=== PATIENT | male | born 1955 | race Caucasian/White ===

== ENCOUNTER 2019-11-20 11:36 | Outpatient (CLI) | payer BC, SELFPAY ==
--- NOTE | 2019-11-20 11:50 | ECG_ITS ---
Measurements Intervals [place] Rate: 83 P: [place]: 0 QRS: 116 QRSD: 153 T: 22 QT: 396 QTc: 466 Interpretive Statements ATRIAL FIBRILLATION RIGHT BUNDLE BRANCH BLOCK LEFT POSTERIOR FASCICULAR BLOCK BASELINE ARTIFACT- I, II, III, AVR, AVL, AVF, V1-V3 ABNORMAL ECG Electronically Signed On 11-20-2019 14:39:43 SHIPPING CLERK by Gilberto Orosco D.O.
== END 2019-11-20 11:37 | disposition home or self-care (01) ==
LOC: CHSCARD 11:41
PROVIDERS: PCP Family Medicine; Visit Provider Family Medicine
DX: I48.91 Unspecified atrial fibrillation (principal); I10 Essential (primary) hypertension
CPT/HCPCS: 93005

== ENCOUNTER 2019-12-25 12:41 | Outpatient (CLI) | payer BC, SELFPAY ==
--- NOTE | ~2019-12-25 | MR_ITS ---
EXAMINATION: MR lumbar spine wo con EXAM DATE: 12/25/2019 14:05 INDICATION: Low back pain. Bladder dysfunction. TECHNIQUE: Multi-sequential, multiplanar MR images of the lumbar spine were obtained without contrast . Sagittal T1, T2, T2 fat saturation images. Axial T2 weighted images. There is no prior study for comparison. FINDINGS: There is endplate erosive change, edema, disc fluid at the L5-S1 level, appearance is suspi cious for discitis/osteomyelitis, could be more indolent etiology. There is less amount of disc edema , signal abnormality within the L4-5 disc space without endplate erosive change. There is abnormal si gnal intensity posterior to the L5 vertebral body, possible small epidural abscess, or could be infla mmation/edema without discrete fluid collection (contrast-enhanced MRI might help distinguish). This measures 8 mm in thickness by 2.5 cm in craniocaudal dimension. Possible underlying etiologies includ e granulomatous process (TB, brucellosis, fungal), or possibly pyogenic infection. There is 3 mm retrolisthesis L4 on L5, 4 mm anterolisthesis L5 on S1. Hemangioma within the L4 verteb ral body. The conus medullaris terminates at the T12-L1 level and has normal signal intensity and mor phology. There is probable bilateral L5 spondylolysis. Level by level evaluation: T11-12: There is a mild diffuse disc bulge. Facet arthropathy: Mild to moderate. Neural foraminal stenosis: Moderate right. Central canal stenosis: No stenosis. T12-L1: Disc does not extend beyond the endplate margin. Facet arthropathy: Mild to moderate. Neural foraminal stenosis: No stenosis. Central canal stenosis: No stenosis. L1-L2: There is a mild to moderate diffuse disc bulge. Facet arthropathy: Mild to moderate. Neural foraminal stenosis: Mild bilateral. Central canal stenosis: Mild. L2-L3: There is a mild diffuse disc bulge. Facet arthropathy: Mild. Neural foraminal stenosis: No stenosis. Central canal stenosis: Mild. L3-L4: There is a mild to moderate diffuse disc bulge. Facet arthropathy: Mild to moderate. Neural foraminal stenosis: Mild right. Central canal stenosis: Mild. L4-L5: There is a moderate to large diffuse disc bulge. Facet arthropathy: Moderate . Ligamentum flavum enlargement. Neural foraminal stenosis: Moderate right, mild to moderate left. Central canal stenosis: Moderate to severe. L5-S1: There is a moderate to large diffuse disc bulge. Facet arthropathy: Mild to moderate. Neural foraminal stenosis: Moderate to severe bilateral. Edema within neural foramen. Central canal stenosis: Mild to moderate. IMPRESSION: 1. Findings suspicious for discitis/osteomyelitis L5-S1 more than L4-5. 2. Possible small epidural abscess posterior to L5. 3. Moderate to severe L4-5 Central canal stenosis and L5-S1 bilateral neural foraminal stenosis. I discussed suspected discitis/osteomyelitis with Preet Begum MD at 945 a.m on 12/26/2019. Reviewed, dictated and finalized at location A. IMPRESSION: 1. Findings suspicious for discitis/osteomyelitis L5-S1 more than L4-5. 2. Possible small epidural abscess posterior to L5. 3. Moderate to severe L4-5 Central canal stenosis and L5-S1 bilateral neural f oraminal stenosis. I discussed suspected discitis/osteomyelitis with Preet Begum MD at 945 a.m on 12/26/2019.
== END 2019-12-25 12:42 | disposition home or self-care (01) ==
PROVIDERS: PCP Family Medicine; Visit Provider Family Medicine
DX: M54.17 Radiculopathy, lumbosacral region (principal); M48.061 Spinal stenosis, lumbar region without neurogenic claudication
CPT/HCPCS: 72148

== ENCOUNTER 2020-04-23 12:02 | Outpatient (CLI) | payer BC, SELFPAY ==
--- NOTE | 2020-04-23 14:41 | PC.NURSE ---
here for monthly supra pubic hernandez cath change. #16 hernandez cath removed and new #16 hernandez cath inserted under aviation survival technician. immediate return of clear yellow with pink tinges. tolerated well and left facilty in electric wc. supra pubic area had some dry brown drainage area cleansed prior to change. stoma area is pink.
== END 2020-04-23 12:03 | disposition home or self-care (01) ==
LOC: CHSTREATRM 12:06
PROVIDERS: PCP Family Medicine; Visit Provider Family Medicine
DX: N35.819 Other urethral stricture, male, unspecified site (principal)
CPT/HCPCS: 51702

== ENCOUNTER 2020-05-28 13:56 | Outpatient (CLI) | payer BC, SELFPAY ==
--- NOTE | 2020-05-28 15:11 | PC.NURSE ---
1400 Patient here for Out Patient supra pubic catheter change. Had resistance getting bulb deflated. Bonita Clayton NP assisted with irrigated bulb, and was able to deflate it and dc'd catheter. Noted patient had hazy sediment urine in tubing and drainage bag. Attempted to insert #16 catheter under steril techique without successful, meeting resistance. Bonita Clayton NP also attempted without successful, also. Patient slight irritated around opening. Bonita Clayton NP suggest send down to ED for MD to look at it. Patient escorted down to ER to registered. Report given to Comfort and Dr. Matos. Bonita also spoke to Dr. Matos.
== END 2020-05-28 13:57 | disposition home or self-care (01) ==
LOC: CHSTREATRM 14:00
PROVIDERS: PCP Family Medicine; Visit Provider Family Medicine
DX: N35.819 Other urethral stricture, male, unspecified site (principal); G06.1 Intraspinal abscess and granuloma; Z96.0 Presence of urogenital implants; T83.090A Other mechanical complication of cystostomy catheter, initial encounter
CPT/HCPCS: 51705

== ENCOUNTER 2020-05-28 15:06 | Emergency (ER) | payer BC, SELFPAY ==
[2020-05-28 15:50] VITALS: BP 106/57; PULSE 72; RESP 18; TEMP 36.4; O2SAT 100
--- NOTE | 2020-05-28 16:04 | ED_ITS ---
HPI - Male Genitourinary General Chief complaint: Urogenital-Male Stated complaint: . History of Present Illness HPI Narrative: Patient sent for outpatient suprapubic catheter change, while on the floor of catheter was difficult to remove, after accomplishing a removal it was difficult for nurses on outpatient basis to reinsert the suprapubic catheter. The patient was subsequently brought downstairs to the emergency department were he was signed in for a suprapubic catheter placement. Patient afebrile no acute pain no shortness of breath no abdominal pain. Review of Systems Review of Systems: All systems reviewed & are unremarkable except as noted in HPI and below PMFSH Past Medical History Medical History Atrial fibrillation Chronic back pain History of neuropathy Surgical History Surgical History History of suprapubic catheter Exam Const: General: cooperative HENMT: Head: normal to inspection Eyes: General: appearance normal, both eyes and all related structures EOM: EOMs intact bilaterally and EOM abnormal Cardio: Palpation: normal PMI Rate: regular rate Rhythm: regular rhythm GI: Inspection: normal to inspection : Other: Suprapubic catheter replaced Course Course Emergency Course: patient prepped with some Betadine and a suprapubic catheter with a coude was placed 14gauge. Procedures Other Procedure Procedure 1: Other Procedure: suprapubic catheter replaced with a 14gauge coude Critical Care Time Critical Care Time Critical Care Time: No Discharge Plan Discharge Clinical Impression: Obstructed suprapubic catheter Qualifiers: Encounter type: initial encounter Qualified Code(s): T83.090A - Other me chanical complication of cystostomy catheter, initial encounter Patient Disposition: Home, Self-Care Condition: Stable Instructions: Antibiotic Form, How to Care for Your Suprapubic Catheter (DC) Additional Instructions: follow-up with primary care physician as scheduled. Follow-up/Referrals: Preet Begum MD [Primary Care Provider] - Time of Disposition: 16:11
== END 2020-05-28 16:17 | disposition home or self-care (01) ==
PROVIDERS: Emergency Provider Emergency Medicine; PCP Family Medicine
DX: T83.090A Other mechanical complication of cystostomy catheter, initial encounter (principal)
CPT/HCPCS: 51705; 99282; 99283

== ENCOUNTER 2020-06-24 13:01 | Outpatient (CLI) | payer BC, SELFPAY ==
--- NOTE | ~2020-06-24 | US_ITS ---
EXAMINATION: US arterial ankle brachial ind DATE: 06/24/2020 14:40 INDICATION: Disorder of circulatory system with risk factors of diabetes, hypertension, hyperlipidemi a and heart disease. TECHNIQUE: Segmental pressures and plethysmographic and Doppler waveforms of the brachial and lower e xtremity arteries were obtained. COMPARISON: None. FINDINGS: Right and left brachial artery pressures of 104 mm Hg and 107 mm Hg, respectively, are concordant (no rmal difference <= 30 mmHg). The right ankle-brachial index (SIM) was unable to be obtained due to inability to occlude the vessel s at the right ankle (normal >= 0.9-1.0). The right great toe-brachial index (TBI) is 0.85 (normal >= 0.65). Arterial Doppler waveforms demonstrate brisk systolic upstrokes at both the right posterior t ibial and dorsalis pedis arteries. The left SIM is also unable to be obtained due to inability to occlude the vessels at the left ankle. The left TBI is 0.79. Arterial Doppler waveforms are biphasic with brisk systolic upstrokes of both the left posterior tibial and dorsalis pedis arteries. IMPRESSION: 1. No significant arterial occlusive disease to either lower limb with normal bilateral TBI's. Reviewed, dictated and finalized at location A. IMPRESSION: 1. No significant arterial occlusive disease to either lower limb with normal b ilateral TBI's.
--- NOTE | ~2020-06-24 | XR_ITS ---
EXAMINATION: XR foot RT min 3V DATE: 06/24/2020 14:11 INDICATION: Right foot pain with wound at the plantar side of the foot. TECHNIQUE: Dorsoplantar, two oblique and lateral views of the right foot were obtained. COMPARISON: None. FINDINGS: Alignment is normal. No fracture. Cortical erosions or periosteal reaction to suggest osteomyelitis. 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 Tiny calcifications likely enthe sopathic near the calcaneal insertion of the plantar aponeurosis. Extensive vascular calcifications t hroughout the right foot and ankle. Soft tissue swelling with subcutaneous edema throughout the right foot, ankle and visualized lower leg. No right ankle joint effusion. IMPRESSION: 1. No acute osseous abnormality. 2. Degenerative changes including mild posterior articular osteoarthritis in the forefoot and entheso pathic change at the posterior calcaneus. Reviewed, dictated and finalized at location A. IMPRESSION: 1. No acute osseous abnormality. 2. Degenerative changes including mild posterior articular osteoarthritis in th e forefoot and enthesopathic change at the posterior calcaneus.
--- NOTE | 2020-06-24 14:31 | PC.NURSE ---
1300 here for monthly supra pubic cath. # 16 coude and new #16 coude inserted with no difficulty under director of instructional technology. immediate return of yellow urine. bulb inflated with 10ml sterile h2o. insertion site light pink. toklerated well and no c/o left in his own personalized motorized wc. next appointment set.
== END 2020-06-24 13:02 | disposition home or self-care (01) ==
LOC: CHSTREATRM 13:04
PROVIDERS: PCP Family Medicine; Visit Provider Family Medicine
DX: R09.89 Other specified symptoms and signs involving the circulatory and respiratory systems (principal); M79.671 Pain in right foot; N35.819 Other urethral stricture, male, unspecified site; G06.1 Intraspinal abscess and granuloma; Z96.0 Presence of urogenital implants
CPT/HCPCS: 51702; 51705; 73630; 93922

== ENCOUNTER 2020-07-30 13:09 | Outpatient (CLI) | payer BC, SELFPAY ==
--- NOTE | 2020-07-30 14:53 | PC.NURSE ---
1345 here for monthly supra pubic hernandez change. did have some resistance on attempting to get hernandez removed. bulb deflated..meeting resistance on pulling out cath. did come out. new crude cath inserted without difficulty. immediate return of red urine. tolerated well. bulb inflated with 10cc of sterile water. stat locked to r upper leg.
== END 2020-07-30 13:10 | disposition home or self-care (01) ==
LOC: CHSTREATRM 13:14
PROVIDERS: PCP Family Medicine; Visit Provider Family Medicine
DX: N35.819 Other urethral stricture, male, unspecified site (principal); G06.1 Intraspinal abscess and granuloma; Z96.0 Presence of urogenital implants
CPT/HCPCS: 51705

== ENCOUNTER 2020-09-11 10:11 | Outpatient (CLI) | payer BC, SELFPAY ==
--- NOTE | 2020-09-11 10:30 | PC.NURSE ---
Pt to room 227 per wc. A&Ox3. Has no concerns or complaints. 16Fr. Coude suprapubic catheter removed, intact. Suprapubic stoma opening without redness or drainage. Area cleansed with betadine. New 16Fr. Coude suprapubic catheter placed using sterile technique without difficulty. Immediate return of clear yellow urine noted. Pt tolerated well. Discharged to home per self, per wc.
== END 2020-09-11 10:12 | disposition home or self-care (01) ==
PROVIDERS: PCP Family Medicine; Visit Provider Family Medicine
DX: N35.819 Other urethral stricture, male, unspecified site (principal); G06.1 Intraspinal abscess and granuloma; Z96.0 Presence of urogenital implants
CPT/HCPCS: 51702; 51705

== ENCOUNTER 2020-09-25 09:06 | Outpatient (CLI) | payer BC, SELFPAY ==
[2020-09-25 12:05] LABS: Basophils Absolute Auto 0.04 K/mm3 (0.00-0.10); Basophils Percent Auto 0.6 % (0.0-1.0); Eosinophils Absolute Auto 0.29 K/mm3 (0.02-0.50); Eosinophils Percent Auto 4.6 % (1.0-6.0); Hematocrit 30.6 % (37.0-46.0); Hemoglobin 9.7 g/dL (12.4-15.3); Immature Granulocyte Absolute 0.02 K/mm3 (0.00-0.00); Immature Granulocyte Percent A 0.3 % (0.0-0.0); Lymphocytes Absolute Auto 1.31 K/mm3 (1.10-4.50); Mean Corpuscular HGB Conc 31.7 g/dL (32.0-36.0); Mean Corpuscular Hemoglobin 28.4 pg (27.0-31.0); Mean Corpuscular Volume 89.5 fL (78.0-102.0); Mean Platelet Volume 10.6 fl (8.7-11.0); Monocytes Absolute Auto 0.59 K/mm3 (0.10-0.90); Monocytes Percent Auto 9.4 % (2.0-11.0); Neutrophils Percent Auto 64.1 % (50.0-70.0); Platelet Count Result 254 K/mm3 (150-420); Red Blood Count 3.42 M/mm3 (4.70-6.10); Red Cell Distribution Width 13.9 % (11.6-14.4); White Blood Count 6.3 K/mm3 (4.8-10.8)
[2020-09-25 12:59] LABS: Alkaline Phosphatase 122 U/L (46-116); Anion Gap 8 mmol/L (8-16); Aspartate Amino Transferase 19 U/L (15-37); Bilirubin,Total 0.6 mg/dL (0.00-1.00); Blood Urea Nitrogen 33 mg/dL (7-18); Calcium 8.6 mg/dL (8.5-10.1); Carbon Dioxide 25 mmol/L (21-32); Chloride 103 mmol/L (98-108); Estimated Glomerular Filt Rate 22; Glucose 83 mg/dL (70-99); Osmolality Calculated 288 mOsm/kg (285-295); Potassium 3.7 mmol/L (3.5-5.1); Sodium 136 mmol/L (136-145); Total Protein 6.8 g/dL (6.4-8.2)
[2020-09-25 13:22] LABS: Alanine Aminotransferase 15 U/L (16-63); Albumin Level 2.4 g/dL (3.4-5.0)
[2020-09-26 18:58] LABS: SARS-CoV-2 RNA PCR Negative
== END 2020-09-25 09:07 | disposition home or self-care (01) ==
LOC: CHSLAB 09:09
PROVIDERS: PCP Family Medicine; Visit Provider Family Medicine
DX: R19.7 Diarrhea, unspecified (principal); Z20.828 Contact with and (suspected) exposure to other viral communicable diseases
CPT/HCPCS: 36415; 80053; 85025; 87635; C9803; U0003

== ENCOUNTER 2020-10-16 14:26 | Outpatient (CLI) | payer BC, SELFPAY ==
--- NOTE | 2020-10-16 14:50 | PC.NURSE ---
Suprapubic catheter changed by Jaime HOUSTON. Tolerated well by patient. Extra stat lock for catheter sent with patient. Patient wheelchair bound. Wheeled self off of floor.
== END 2020-10-16 14:27 | disposition home or self-care (01) ==
LOC: CHSLAB 14:29
PROVIDERS: PCP Family Medicine; Visit Provider Family Medicine
DX: N35.819 Other urethral stricture, male, unspecified site (principal); Z96.0 Presence of urogenital implants; G06.1 Intraspinal abscess and granuloma
CPT/HCPCS: 51705

== ENCOUNTER 2020-11-26 10:39 | Outpatient (CLI) | payer BC, SELFPAY ==
--- NOTE | 2020-11-26 11:16 | PC.NURSE ---
Patient arrived via motorized wheelchair. Directed to room 201. Coude' Silva catheter removed with balloon and tip intact. Suprapubic stoma cleansed with iodine solution. #16 fr coude Silva catheter inserted with immediate return of pink urine with minimal blood. Patient reports this is usual for him. Catheter secured with stat lock. Patient left per motorized wheelchair.
== END 2020-11-26 10:40 | disposition home or self-care (01) ==
PROVIDERS: PCP Family Medicine; Visit Provider Family Medicine
DX: N35.819 Other urethral stricture, male, unspecified site (principal); G06.1 Intraspinal abscess and granuloma
CPT/HCPCS: 51702; 51705

== ENCOUNTER 2021-01-01 10:47 | Outpatient (CLI) | payer BC, SELFPAY ==
--- NOTE | 2021-01-01 16:33 | PC.NURSE ---
1300 pt here for monthly hernandez cath change. urine in bag has like a green tinged. hernandez bulb deflated only could get approx 3ml return. had lots of trouble trying to hernandez out. did finally come. did have some red bloody. area cleansed and technician anatomic pathology inserted a new hernandez without no trouble and immediate return of marissa urine. bulb inflated with 8ml of ns. tolerated well.
== END 2021-01-01 10:48 | disposition home or self-care (01) ==
PROVIDERS: PCP Family Medicine; Visit Provider Family Medicine
DX: N35.819 Other urethral stricture, male, unspecified site (principal); G06.1 Intraspinal abscess and granuloma
CPT/HCPCS: 51702

== ENCOUNTER 2021-01-29 10:54 | Outpatient (CLI) | payer BC, SELFPAY ==
--- NOTE | 2021-01-29 11:33 | PC.NURSE ---
here for supra-pubic cath change. old hernandez bulb deflated and removed with ease. new #16 coude inserted under piano technician. immediate return of red tinged urine that cleared immediately. bulb infated with 8ml sterile h20. tolerated well. left in his own motorized wc. to return february 26 @ 11am.
== END 2021-01-29 10:55 | disposition home or self-care (01) ==
PROVIDERS: PCP Family Medicine; Visit Provider Family Medicine
DX: N35.819 Other urethral stricture, male, unspecified site (principal); G06.1 Intraspinal abscess and granuloma
CPT/HCPCS: 51705

== ENCOUNTER 2021-02-02 11:08 | Outpatient (NON) | payer BC, SELFPAY ==
[2021-02-02 11:31] LABS: Hematocrit 40.7 % (37.0-46.0); Mean Corpuscular HGB Conc 31.9 g/dL (32.0-36.0); Mean Corpuscular Hemoglobin 27.6 pg (27.0-31.0); Mean Corpuscular Volume 86.4 fL (78.0-102.0); Mean Platelet Volume 12.3 fl (8.7-11.0); Platelet Count Result 110 K/mm3 (150-420); Red Blood Count 4.71 M/mm3 (4.70-6.10); Red Cell Distribution Width 15.9 % (11.6-14.4); White Blood Count 1.9 K/mm3 (4.8-10.8)
[2021-02-02 11:47] LABS: Anion Gap 6 mmol/L (8-16); Blood Urea Nitrogen 30 mg/dL (7-18); Calcium 7.9 mg/dL (8.5-10.1); Carbon Dioxide 27 mmol/L (21-32); Chloride 106 mmol/L (98-108); Estimated Glomerular Filt Rate 39; Glucose 73 mg/dL (70-99); Osmolality Calculated 293 mOsm/kg (285-295); Sodium 139 mmol/L (136-145)
[2021-02-02 12:05] LABS: Band Neutrophils Percent 0 % (0-6); Basophils Percent Manual 0 % (0-1); Eosinophils Absolute Manual 0.13 K/mm3 (0.02-0.5); Eosinophils Percent Manual 7 % (1-6); Lymphocytes Absolute Manual 0.57 K/mm3 (1.1-4.5); Lymphocytes Percent Manual 30 % (18-44); Monocytes Absolute Manual 0.07 K/mm3 (0.1-0.90); Monocytes Percent Manual 4 % (3-9); Neutrophils Absolute Manual 1.12 K/mm3 (1.3-6.7); Neutrophils Percent Manual 59 % (46-73); Platelet Estimate Adequate (Adequate); Total Cells Counted 100
[2021-02-02 12:36] LABS: Erythrocyte Sedimentation Rate 18 mm/hr (0-20)
== END 2021-02-02 11:09 | disposition home or self-care (01) ==
LOC: CHSLAB 11:14
PROVIDERS: Family Medicine
DX: M86.171 Other acute osteomyelitis, right ankle and foot (principal); Z79.2 Long term (current) use of antibiotics
CPT/HCPCS: 36415; 80048; 85025; 85652

== ENCOUNTER 2021-02-12 11:38 | Outpatient (CLI) | payer BC, SELFPAY ==
[2021-02-12 11:58] LABS: Basophils Absolute Auto 0.05 K/mm3 (0.00-0.10); Basophils Percent Auto 0.9 % (0.0-1.0); Eosinophils Absolute Auto 0.51 K/mm3 (0.02-0.50); Eosinophils Percent Auto 9.5 % (1.0-6.0); Hematocrit 25.5 % (37.0-46.0); Hemoglobin 7.9 g/dL (12.4-15.3); Immature Granulocyte Absolute 0.02 K/mm3 (0.00-0.00); Immature Granulocyte Percent A 0.4 % (0.0-0.0); Lymphocytes Absolute Auto 1.12 K/mm3 (1.10-4.50); Lymphocytes Percent Auto 20.8 % (18.0-42.0); Mean Corpuscular Hemoglobin 27.6 pg (27.0-31.0); Mean Corpuscular Volume 89.2 fL (78.0-102.0); Mean Platelet Volume 10.3 fl (8.7-11.0); Monocytes Percent Auto 9.3 % (2.0-11.0); Neutrophils Absolute Auto 3.2 K/mm3 (1.7-7.2); Neutrophils Percent Auto 59.1 % (50.0-70.0); Platelet Count Result 239 K/mm3 (150-420); Red Blood Count 2.86 M/mm3 (4.70-6.10); Red Cell Distribution Width 15.9 % (11.6-14.4); White Blood Count 5.4 K/mm3 (4.8-10.8)
[2021-02-12 12:24] LABS: Alanine Aminotransferase 12 U/L (16-63); Albumin Level 1.7 g/dL (3.4-5.0); Alkaline Phosphatase 164 U/L (46-116); Anion Gap 5 mmol/L (8-16); Aspartate Amino Transferase 18 U/L (15-37); Bilirubin,Total 0.5 mg/dL (0.00-1.00); Blood Urea Nitrogen 33 mg/dL (7-18); Calcium 7.8 mg/dL (8.5-10.1); Carbon Dioxide 28 mmol/L (21-32); Chloride 104 mmol/L (98-108); Estimated Glomerular Filt Rate 35; Glucose 79 mg/dL (70-99); Osmolality Calculated 290 mOsm/kg (285-295); Potassium 4.4 mmol/L (3.5-5.1); Sodium 137 mmol/L (136-145); Total Protein 6.1 g/dL (6.4-8.2)
[2021-02-12 13:01] LABS: Erythrocyte Sedimentation Rate 62 mm/hr (0-20)
[2021-02-12 14:35] LABS: Ferritin 190 ng/mL (26-388); Iron 47 ug/dL (65-175); Percent Iron Saturation 31 % (12-57)
== END 2021-02-12 11:39 | disposition home or self-care (01) ==
LOC: CHSLAB 11:39
PROVIDERS: PCP Family Medicine; Visit Provider Family Medicine
DX: M86.9 Osteomyelitis, unspecified (principal); D69.6 Thrombocytopenia, unspecified; D64.9 Anemia, unspecified
CPT/HCPCS: 36415; 80053; 82728; 83540; 83550; 85025; 85652

== ENCOUNTER 2021-02-16 11:21 | Outpatient (NON) | payer BC, SELFPAY ==
[2021-02-16 11:58] LABS: Anion Gap 7 mmol/L (8-16); Blood Urea Nitrogen 30 mg/dL (7-18); Calcium 7.6 mg/dL (8.5-10.1); Carbon Dioxide 27 mmol/L (21-32); Chloride 105 mmol/L (98-108); Estimated Glomerular Filt Rate 33; Glucose 126 mg/dL (70-99); Osmolality Calculated 296 mOsm/kg (285-295); Potassium 3.7 mmol/L (3.5-5.1); Sodium 139 mmol/L (136-145)
[2021-02-16 12:01] LABS: Basophils Absolute Auto 0.02 K/mm3 (0.00-0.10); Basophils Percent Auto 0.4 % (0.0-1.0); Eosinophils Absolute Auto 0.49 K/mm3 (0.02-0.50); Eosinophils Percent Auto 8.7 % (1.0-6.0); Immature Granulocyte Absolute 0.02 K/mm3 (0.00-0.00); Immature Granulocyte Percent A 0.4 % (0.0-0.0); Lymphocytes Absolute Auto 1.57 K/mm3 (1.10-4.50); Mean Corpuscular HGB Conc 31.9 g/dL (32.0-36.0); Mean Corpuscular Hemoglobin 28.6 pg (27.0-31.0); Mean Corpuscular Volume 89.7 fL (78.0-102.0); Mean Platelet Volume 11.7 fl (8.7-11.0); Monocytes Absolute Auto 0.52 K/mm3 (0.10-0.90); Monocytes Percent Auto 9.3 % (2.0-11.0); Neutrophils Percent Auto 53.2 % (50.0-70.0); Platelet Count Result 238 K/mm3 (150-420); Red Blood Count 1.26 M/mm3 (4.70-6.10); Red Cell Distribution Width 15.9 % (11.6-14.4); White Blood Count 5.6 K/mm3 (4.8-10.8)
[2021-02-16 12:09] LABS: Hematocrit 11.3 % (37.0-46.0); Hemoglobin 3.6 g/dL (12.4-15.3)
[2021-02-16 13:07] LABS: Erythrocyte Sedimentation Rate 80 mm/hr (0-20)
== END 2021-02-16 11:22 | disposition home or self-care (01) ==
PROVIDERS: PCP Family Medicine
DX: M86.171 Other acute osteomyelitis, right ankle and foot (principal); Z79.2 Long term (current) use of antibiotics
CPT/HCPCS: 36415; 80048; 85025; 85652

== ENCOUNTER 2021-03-02 10:27 | Outpatient (NON) | payer BC, SELFPAY ==
[2021-03-02 11:20] LABS: Erythrocyte Sedimentation Rate 54 mm/hr (0-20)
[2021-03-02 11:23] LABS: Hematocrit 26.2 % (37.0-46.0); Hemoglobin 8.2 g/dL (12.4-15.3); Mean Corpuscular HGB Conc 31.3 g/dL (32.0-36.0); Mean Corpuscular Hemoglobin 28.6 pg (27.0-31.0); Mean Corpuscular Volume 91.3 fL (78.0-102.0); Platelet Count Result 180 K/mm3 (150-420); Red Blood Count 2.87 M/mm3 (4.70-6.10); Red Cell Distribution Width 16.2 % (11.6-14.4); White Blood Count 5.4 K/mm3 (4.8-10.8)
[2021-03-02 11:34] LABS: Anion Gap 9 mmol/L (8-16); Blood Urea Nitrogen 38 mg/dL (7-18); Carbon Dioxide 25 mmol/L (21-32); Chloride 106 mmol/L (98-108); Estimated Glomerular Filt Rate 30; Glucose 141 mg/dL (70-99); Osmolality Calculated 301 mOsm/kg (285-295); Potassium 3.9 mmol/L (3.5-5.1); Sodium 140 mmol/L (136-145)
[2021-03-02 11:55] LABS: Band Neutrophils Percent 0 % (0-6); Basophils Absolute Manual 0.16 K/mm3 (0-0.1); Basophils Percent Manual 3 % (0-1); Eosinophils Absolute Manual 0.59 K/mm3 (0.02-0.5); Eosinophils Percent Manual 11 % (1-6); Lymphocytes Absolute Manual 1.51 K/mm3 (1.1-4.5); Lymphocytes Percent Manual 28 % (18-44); Monocytes Percent Manual 2 % (3-9); Neutrophils Absolute Manual 3.02 K/mm3 (1.3-6.7); Neutrophils Percent Manual 56 % (46-73); Total Cells Counted 100
[2021-03-02 11:56] LABS: Platelet Estimate Adequate (Adequate)
== END 2021-03-02 10:28 | disposition home or self-care (01) ==
LOC: CHSLAB 10:38
DX: M86.9 Osteomyelitis, unspecified (principal); Z79.2 Long term (current) use of antibiotics
CPT/HCPCS: 36415; 80048; 85025; 85652

== ENCOUNTER 2021-04-05 11:38 | Outpatient (CLI) | payer BC, SELFPAY ==
--- NOTE | ~2021-04-05 | XR_ITS ---
EXAMINATION: XR chest 2V DATE: 04/05/2021 12:12 INDICATION: Cough and pleural effusion TECHNIQUE: frontal and lateral views of the chest were obtained. COMPARISON: None FINDINGS: There is complete opacification of the right hemithorax. Very small left pleural effusion with blunti ng of the posterior sulcus but not the costophrenic angles. Small calcified nodule in the left midlun g zone consistent with old granulomatous disease. No pneumothorax. The left side of the cardiomediast inal silhouette is normal. The right side is obscured. No evident midline shift of the trachea. There are bridging osteophytes at multiple levels in the spine, consistent with diffuse idiopathic skeleta l hyperostosis (DISH). IMPRESSION: 1. Complete opacification of the right hemithorax consistent with likely large right pleural effusion and associated atelectasis. Underlying malignancy or pneumonia not excludable. 2. Very small left pleural effusion. Reviewed, dictated and finalized at location A. IMPRESSION: 1. Complete opacification of the right hemithorax consistent with likely large right pleural effusion and associated atelectasis. Underlying malignancy or pne umonia not excludable. 2. Very small left pleural effusion.
== END 2021-04-05 11:39 | disposition home or self-care (01) ==
LOC: CHSIMG 11:42
PROVIDERS: PCP Family Medicine; Visit Provider Family Medicine
DX: J90 Pleural effusion, not elsewhere classified (principal)
CPT/HCPCS: 71046

== ENCOUNTER 2021-04-06 11:10 | Inpatient (IN) | payer MEDICARE, BC, SELFPAY ==
[2021-04-06] VITALS (14 sets, daily range): BP systolic 102–150; BP diastolic 59–99; PULSE 100–165; RESP 20–29; TEMP 36.1–37.6; O2SAT 93–98; BMI 36.0
--- NOTE | ~2021-04-06 | CT_ITS ---
EXAMINATION: CT diagnostic chest wo con DATE: 04/06/2021 13:17 INDICATION: opacified right hemithorax TECHNIQUE: Computed tomography (CT) of the chest was performed without intravenous contrast. Addition al 3D reconstructions utilizing coronal maximum intensity projection (MIP) were performed. Automated exposure control and iterative reconstruction technique were employed. The dose-length product was 73 9.13 mGy-cm. COMPARISON: None FINDINGS: Large right pleural effusion which results in depression of the right hemidiaphragm. There is complet e collapse of the right lung. There appears to be loculation of a small portion of the anteromedial a spect of a pleural effusion with extrusion of the right middle and upper lobes to the anterior pleura . Small amount of fluid layering posteriorly in the inferior trachea with fluid filling the right-lopez ed bronchi. Small left pleural effusion. There are few small bilateral calcified pulmonary nodules al derik with calcified left hilum and mediastinum consistent with old granulomatous disease. Heart size i s normal. No pericardial effusion. Atherosclerotic coronary artery calcification. Thoracic aorta is n ormal in caliber. No pathologically enlarged thoracic lymphadenopathy. Small amount of perihepatic as cites in the upper abdomen. Nonspecific splenomegaly measuring at least 14 cm in maximal length. Ther e are bridging osteophytes at multiple levels in the spine, consistent with diffuse idiopathic skelet al hyperostosis (DISH). Body wall edema. IMPRESSION: 1. Large right pleural effusion with with complete collapse of the right lung. There appear to be iftikhar e adhesions with mild loculation of a portion of the pleural effusion as well as with depression of t he right hemidiaphragm suggesting this represents an exudative effusion indeterminate etiology. Consi raheel diagnostic thoracentesis. 2. Nonspecific splenomegaly. 3. Very small left pleural effusion and small amount of ascites in the right upper quadrant. Reviewed, dictated and finalized at location A. IMPRESSION: 1. Large right pleural effusion with with complete collapse of the right lung. There appear to be some adhesions with mild loculation of a portion of the pleu ral effusion as well as with depression of the right hemidiaphragm suggesting t his represents an exudative effusion indeterminate etiology. Consider diagnosti c thoracentesis. 2. Nonspecific splenomegaly. 3. Very small left pleural effusion and small amount of ascites in the right up per quadrant.
--- NOTE | ~2021-04-06 | CT_ITS ---
EXAMINATION: CT abdomen pelvis wo con DATE: 04/06/2021 14:33 INDICATION: Renal failure TECHNIQUE: Computed tomography (CT) of the abdomen and pelvis was performed without intravenous contr ast. The dose-length product (DLP) was 1613.29 mGy-cm. Automated exposure control and iterative recon struction technique were employed. COMPARISON: None FINDINGS: There is complete opacification of the visualized right hemithorax with collapse of the rig ht lung. The heart size is normal. The liver, spleen, pancreas, and adrenal glands are normal. Stones are present in the nondistended gallbladder. There is mild atrophy of the kidneys. A 1.4 cm cyst is noted in the left kidney. There is calcified atherosclerosis of the aorta and many of the other arter ies. No pathologically enlarged abdominal or pelvic lymph nodes are identified. There is no free intr aperitoneal gas or evidence of bowel obstruction. There is a small volume of right upper quadrant asc ites tracking into the pelvis. There are bilateral inguinal hernias containing fat. A small amount of ascites is also noted in the right inguinal hernia. A suprapubic catheter decompresses the urinary b ladder. Changes of posterior lumbosacral fusion are noted there are severe spondylosis at L5-S1. IMPRESSION: 1. Complete opacification of the visualized hemithorax with collapse of the right lobe. 2. Cholelithiasis without evidence of cholecystitis. 3. Small volume of right upper quadrant ascites tracking into the pelvis. Reviewed, dictated and finalized at location B. IMPRESSION: 1. Complete opacification of the visualized hemithorax with collapse of the rig ht lobe. 2. Cholelithiasis without evidence of cholecystitis. 3. Small volume of right upper quadrant ascites tracking into the pelvis.
--- NOTE | ~2021-04-06 | XR_ITS ---
EXAMINATION: XR chest port-a-cath/central INDICATION: Dialysis catheter insertion TECHNIQUE: Portable AP chest at 1132 hours COMPARISON: 04/05/2021 FINDINGS: A right internal jugular dialysis catheter is been inserted which ends with its tip in the distal superior vena cava. There is no pneumothorax. There is complete opacification of the right hem ithorax. Patchy airspace opacities are present in the left lung. The heart size is normal. IMPRESSION: 1. Right internal jugular dialysis catheter insertion. No pneumothorax. 2. Complete opacification of right hemithorax, consistent with pleural effusion and right lung collap se. Reviewed, dictated and finalized at location B. IMPRESSION: 1. Right internal jugular dialysis catheter insertion. No pneumothorax. 2. Complete opacification of right hemithorax, consistent with pleural effusion and right lung collapse.
--- NOTE | ~2021-04-06 | XR_ITS ---
EXAMINATION: [id number] DATE: 04/07/2021 11:12 INDICATION: Right pleural effusion status post thoracentesis. TECHNIQUE: A single frontal view of the chest was obtained. COMPARISON: Chest 2 views 04/05/2021 FINDINGS: There is complete opacification of right hemithorax, consistent with large pleural effusion . A calcified left lung nodule is consistent with old granulomatous disease. No pneumothorax. The hea rt size is normal. IMPRESSION: 1. Large right pleural effusion with complete opacification of right hemithorax. Reviewed, dictated and finalized at location A. IMPRESSION: 1. Large right pleural effusion with complete opacification of right hemithorax .
--- NOTE | ~2021-04-06 | CT_ITS ---
EXAMINATION: CT brain wo con INDICATION: Altered mental status COMPARISON: None TECHNIQUE: Standard unenhanced head CT. The dose-length product (DLP) was 681.00 mGy-cm. The mA was a djusted according to patient size. Iterative reconstruction technique was employed. FINDINGS: Motion artifact slightly limits the examination. There is no intracranial hemorrhage, acute infarction, or abnormal mass lesion. The ventricles are normal. There is no abnormal mass effect or midline shift. The nix-white matter differentiation is normal. The basal cisterns are patent. Intrac ranial calcified cerebral atherosclerosis is noted. The orbits are normal. The paranasal sinuses, mas toids and calvarium are normal. IMPRESSION: 1. No acute intracranial abnormality. Reviewed, dictated and finalized at location B.
--- NOTE | ~2021-04-06 | US_ITS ---
EXAMINATION: US renal BI DATE: 04/06/2021 14:37 INDICATION: Renal failure. TECHNIQUE: Multiple ultrasound grayscale images of the kidneys were obtained. COMPARISON: CT abdomen and pelvis 04/06/2021 FINDINGS: The right kidney measures 10.9 x 5.7 x 5.2 cm. The left kidney measures 11.6 x 6.4 x 6.1 cm. The kidn eys demonstrate normal parenchymal echogenicity. There is no hydronephrosis. The bladder is decompres sed by a suprapubic catheter. Splenomegaly is noted. There is a right pleural effusion. IMPRESSION: 1. Normal kidneys. No hydronephrosis. 2. Right pleural effusion. 3. Splenomegaly. Reviewed, dictated and finalized at location A.
--- NOTE | ~2021-04-06 | XR_ITS ---
EXAMINATION: XR foot RT 2V EXAM DATE: 04/06/2021 18:52 INDICATION: Wound right foot, recent osteomyelitis . Surgery 3-4 months ago. TECHNIQUE: Frontal and lateral projections of the right foot. Comparison is made to prior examinatio n from 06/24/2020. FINDINGS: Patient is status post right 5th transmetatarsal amputation. There is swelling in the rese ction bed and diffusely over the forefoot. There are no bony erosions identified. Scattered overall m oderate polyarticular primary osteoarthritis. Vascular calcifications. There are no acute fractures i dentified. IMPRESSION: 1. No acute osseous findings. 2. Forefoot soft tissue swelling. Reviewed, dictated and finalized at location A.
--- NOTE | ~2021-04-06 | XR_ITS ---
EXAMINATION: XR abdomen NG/feed tube insert INDICATION: Nasogastric tube placement TECHNIQUE: Portable AP KUB-NG at 1335 hours COMPARISON: None available FINDINGS: The nasogastric tube is in the stomach. There is complete opacification of the right hemith orax. There is moderate gaseous distention of the stomach. IMPRESSION: 1. Nasogastric tube is in the moderately distended stomach. Reviewed, dictated and finalized at location A.
--- NOTE | ~2021-04-06 | US_ITS ---
EXAMINATION: US thoracentesis DATE: 04/07/2021 11:18 INDICATION: pleural effusion TECHNIQUE: The procedure and its risks, benefits, and alternatives were discussed with the patient. P otential risks discussed included bleeding, infection, and pneumothorax. The patient understood the r isks and agreed to proceed. The skin was prepped and draped in sterile fashion. 1% lidocaine was used for local anesthesia. Under ultrasound guidance, a 5 Fr catheter with trochar was advanced into the right pleural effusion. Fluid was aspirated. The catheter was removed, and a dressing was applied. Th ere were no immediate complications. FINDINGS: Ultrasound images demonstrate a right pleural effusion and the catheter within the fluid. IMPRESSION: 1. Successful ultrasound-guided thoracentesis yielding 1000 mL of cloudy, yellow fluid. Reviewed, dictated and finalized at location A. IMPRESSION: 1. Successful ultrasound-guided thoracentesis yielding 1000 mL of cloudy, yell ow fluid.
--- NOTE | 2021-04-06 11:31 | ECG_ITS ---
Measurements Intervals [place] Rate: 168 P: [place]: 0 QRS: 89 QRSD: 138 T: 26 QT: 267 QTc: 446 Interpretive Statements ATRIAL FIBRILLATION WITH RAPID VENTRICULAR RESPONSE RIGHT BUNDLE BRANCH BLOCK BASELINE ARTIFACT- II, III, AVR, AVF, V4-V6 ABNORMAL ECG Electronically Signed On 04-06-2021 11:43:27 CDT by Gilberto Orosco D.O.
[2021-04-06] MEDS: dilTIAZem HCl INJ 25 MG/5 ML VIAL 10 MG IV PUSH (11:53)
[2021-04-06 12:06] LABS: Basophils Absolute Auto 0.1 K/mm3 (0.0-0.1); Basophils Percent Auto 0.2 % (0.2-1.2); Eosinophils Absolute Auto 0.1 K/mm3 (0-0.3); Eosinophils Percent Auto 0.2 % (0-4.4); Hematocrit 27.2 % (42.0-52.0); Lymphocytes Absolute Auto 0.85 K/mm3 (0.9-3.2); Lymphocytes Percent Auto 2.9 % (18.3-44.2); Mean Corpuscular HGB Conc 33.1 g/dl (32-36); Mean Corpuscular Volume 84.5 fl (80-100); Mean Platelet Volume 11.2 fl (7.4-10.4); Monocytes Percent Auto 3.6 % (2.6-8.5); Neutrophils Absolute Auto 26.5 K/mm3 (1.3-6.7); Neutrophils Percent Auto 92.1 % (45.5-73.1); Platelet Count Result 368 k/mm3 (150-375); Red Blood Count 3.22 M/mm3 (4.6-6.20); Red Cell Distribution Width 15.9 % (11.5-14.5); White Blood Count 28.8 K/mm3 (4.5-10.0)
[2021-04-06 12:14] LABS: INR 1.7; Lactic Acid Reflex 0.9 mmol/L (0.7-2.1); Prothrombin Time 20.1 Seconds (11.1-14.7)
[2021-04-06 12:15] LABS: Alanine Aminotransferase 17 U/L (4-50); Albumin Level 2.6 g/dL (3.5-5.1); Alkaline Phosphatase 225 U/L (38-126); Anion Gap 14 mmol/L (8-16); Aspartate Amino Transferase 38 U/L (17-59); Bilirubin,Total 0.9 mg/dL (0.2-1.3); Blood Urea Nitrogen 117 mg/dL (9-20); Calcium 8.2 mg/dL (8.4-10.2); Carbon Dioxide 17 mmol/L (22-30); Chloride 104 mmol/L (98-107); Estimated CRCL calculation 19 ml/min; Estimated Glomerular Filt Rate 11; Glucose 111 mg/dL (75-110); Potassium 4.2 mmol/L (3.4-5.0); Sodium 135 mmol/L (137-145)
[2021-04-06 12:21] LABS: Add Urine Microscopic? YES; Appearance Urine Cloudy (Clear); Bilirubin Urine Negative (Negative); Blood Urine 3+ (Negative); Glucose Urine UA Negative (Negative); Ketones Urine Negative (Negative); Leukocyte Esterase Ur 3+ LEU/UL (Negative); Mucus Urine Rare /lpf; Nitrate Urine Negative (Negative); Protein Urine 2+ mg/dL (Negative); RBC Urine >75 /hpf (0-2); Specific Grav Ur 1.014 (1.001-1.035); Squamous Epithelial Cell Urine Occasional /hpf (Few); Urobilinogen Urine Negative mg/dL (<2.0); WBC Urine >75 /hpf
[2021-04-06 12:23] LABS: NT Pro B Type Natriuretic Pept 23400 pg/mL (5-100)
[2021-04-06 12:27] LABS: Color Urine Dark Amber (Yellow)
[2021-04-06 12:43] LABS: Platelet Estimate Adequate (Adequate)
[2021-04-06 12:44] LABS: Helmet Cells 1+ (NORMAL); Poikilocytosis 1+ (NORMAL); Schistocytes 1+ (NORMAL); Target Cells 1+ (NORMAL)
[2021-04-06 12:45] LABS: Ovalocytes 1+ (NORMAL)
--- NOTE | 2021-04-06 13:23 | ED.GENADULT ---
HPI - General Adult General Chief complaint: Weakness Stated complaint: Cough Time Seen by Provider: 04/06/21 11:14 History of Present Illness HPI narrative: Patient is a 66-year-old male who presents to the ER with shortness of breath and white cough. Ongoing over the last week. Has become more tired more short of breath over the last couple days. Denies fevers or chills or sweats. Cough is nonproductive. Apparently he was hospitalized in February at [facility] and had a thoracentesis. Additionally patient has a specialist chest pain at [facility] for infectious disease. Patient unsure if any change in urinary output. Denies any chest pain or pressure. Overall poor historian. Last food intake was a hotdog at a baseball game 4 days ago. Related Data Home Medications Medication Instructions Recorded Confirmed acetaminophen 1,000 mg PO Q6H PRN 04/06/21 04/06/21 apixaban [Eliquis] 5 mg PO BID 04/06/21 04/06/21 aspirin 81 mg PO DAILY 04/06/21 04/06/21 baclofen 10 mg PO Q8H 04/06/21 04/06/21 collagenase clostridium histo. 1 applic TOPICAL DAILY 04/06/21 04/06/21 [Santyl] digoxin 125 mcg PO DAILY 04/06/21 04/06/21 ferrous sulfate 325 mg PO DAILY 04/06/21 04/06/21 folic acid 1 mg PO DAILY 04/06/21 04/06/21 gabapentin 200 mg PO BID 04/06/21 04/06/21 miconazole nitrate 1 applic TOPICAL BID 04/06/21 04/06/21 midodrine 10 mg PO TID 04/06/21 04/06/21 oxycodone-acetaminophen 1 tablet PO Q4H PRN 04/06/21 04/06/21 pravastatin 40 mg PO DAILY 04/06/21 04/06/21 Allergies Allergy/AdvReac Type Severity Reaction Status Date / Time No Known Allergies Allergy Verified 05/28/20 16:24 Review of Systems Review of Systems: All systems reviewed & are unremarkable except as noted in HPI and below Constitutional: Constitutional: Denies chills, Denies fever(s) and Reports weakness ENT: Denies nasal congestion and Denies sore throat Cardiovascular: Cardiovascular: Denies chest pain, Reports rapid heart rate and Denies radiating jaw, neck or arm pain Respiratory: Respiratory: Reports chest congestion, Reports cough, Reports dyspnea and Denies wheezing Gastrointestinal: Gastrointestinal: Denies abdominal pain, Denies nausea and Denies vomiting Neurologic: Denies headache(s), Denies focal weakness and Denies numbness PMFSH Past Medical History Medical History (Updated 04/06/21 @ 16:33 by Jerod Neely MD) Atrial fibrillation Chronic back pain History of neuropathy Osteomyelitis Spine, right foot Surgical History Surgical History (Updated 04/06/21 @ 16:30 by Jerod Neely MD) History of right knee joint replacement History of suprapubic catheter Social History Social History Smoking status: Never smoker Second hand tobacco smoke exposure: Yes Alcohol intake: never Substance use: never Spiritual care concerns: No Exam Narrative: Exam Narrative: GENERAL: Chronically ill-appearing, morbidly obese, and in no acute distress. HEAD: Normocephalic, atraumatic. EYES: PERRL and EOMI. CHEST: Coarse rales with wet cough and diminished on the right side. No distress. HEART: Tachycardic with an irregular regular rate and rhythm. Normal radial pulses.. ABDOMEN: Soft, nontender, nondistended, cloudy urine with granular material coming from suprapubic tube. EXTREMITIES: Normal range of motion of upper extremities. 2+ lower extremity edema with bilateral lower extremities in boots due to lack of mobility. Compression stockings noted. SKIN: Warm, dry, no rash. NEURO: Alert and oriented x3. PSYCH: Normal mood and affect. Course Reevaluation(s) Reevaluation #1: Discussed case with patient's primary care physician who reports patient had a thoracentesis on the right side about a month ago. There is no evidence of cancer on the cytology. Due to patient's chronic comorbidities its been difficult for him to come be seen. He reports patient initially had osteomyelit
--- NOTE | 2021-04-06 15:07 | PM.CNCAR ---
Assessment and Plan Assessment and plan (1) Atrial fibrillation: Code(s): I48.91 - Unspecified atrial fibrillation Status: Acute Assessment and Plan: now with rapid ventricular response, agree with IV Cardizem, started on Cardizem drip at low-dose due to hypotension, maintain heart rate close to 100 as long as his blood pressure does not drop below 100 systolic. he was on digoxin will get this level and adjust his dose accordingly, will get echocardiogram to evaluate current left ventricular systolic function and look for any other structural heart disease (2) Diastolic congestive heart failure: Code(s): I50.30 - Unspecified diastolic (congestive) heart failure Status: Acute Assessment and Plan: with acute decompensation likely is due to atrial fibrillation with rapid ventricular response, will work on controlling his heart rate and then gentle diuresis if possible in view of his renal function (3) Sepsis: Code(s): A41.9 - Sepsis, unspecified organism Status: Acute Assessment and Plan: he seems to have early signs of septic shock, continue closer monitoring, currently he is being covered with IV antibiotics (4) Acute renal failure: Code(s): N17.9 - Acute kidney failure, unspecified Status: Acute Additional Plan Thank you for allowing me to participate in this patient's care, I will be following up with you. Please do not hesitate to call me for any other inquiry History of Present Illness History of Present Illness Consult date/time: 04/06/21 15:07 66 YEARS OLD GENTLEMAN WITH HISTORY OF KNOWN CHRONIC ATRIAL FIBRILLATION, history of spinal disease who is wheelchair-bound, came the hospital because of worsening shortness breath and cough for the past few days. Had significant cough with occasional sputum production, but no fever according to him. Noted to have atrial fibrillation rapid ventricular response, he has palpitation and occasional dizziness but no syncope. He goes to [facility] for atrial fibrillation but does not recall any other cardiac history. Currently has [id number] orthopnea significant leg swelling. Noted to have significant pleural effusion but not going to get a tap today due to the fact that he was on anticoagulation. Reason For Visit: afib rvr,acute on chronic renal failure,pleural,ef Review of Systems Constitutional: Constitutional: Reports fatigue and Denies fever(s) Cardiovascular: Cardiovascular: Reports as per HPI Respiratory: Respiratory: Reports as per HPI [facility] Past Medical History Medical History (Updated 04/06/21 @ 15:13 by Néstor Mendez MD) Atrial fibrillation Chronic back pain History of neuropathy Surgical History Surgical History History of suprapubic catheter Meds Home Medications and Allergies Home Medications Medication Instructions Recorded Confirmed Type Unable to Obtain Home Medications 05/28/20 05/28/20 History Allergies Allergy/AdvReac Type Severity Reaction Status Date / Time No Known Allergies Allergy Verified 05/28/20 16:24 Vital Signs Vital Signs - 24 hr 04/06/21 11:27 04/06/21 11:43 04/06/21 13:34 Temperature 37.6 C 36.9 C Pulse Rate 165 H 152 H 144 H Respiratory Rate 29 H 26 H Blood Pressure 108/59 L 110/72 Pulse Oximetry 93 97 Exam Narrative: Exam Narrative: Awake alert oriented x3 not in acute distress Neck is supple , JVD Noted, no carotid bruit Chest: decreased breathing sound noted with significant crackles Cardiovascular: irregularly irregular rhythm with significant tachycardia noted, 2/6 systolic murmur noted left sternal border Abdomen: Soft nontender bowel sounds positive Extremities: +2 edema noted bilaterally Results Labs and Meds Result diagrams: 04/06/21 11:36 04/06/21 11:36 Lab results: Cardiac Enzymes 04/06/21 Range/Units
--- NOTE | 2021-04-06 15:39 | ADMGEN ---
This patient, Teddy Bundy, was admitted to IMU Room 205-02 at 1539. Patient/family oriented to hospital policies and general routines including ID bracelet, bed and alarms, visiting hours, pain management, procedures, bathroom and other care routines, personal items, smoking policy, room service/diet, and visiting hours. Information on how to activate the Rapid Response Team has been discussed. Patient/Family are encouraged to report perceived risks to care and to ask questions if they do not understand what they are told or what they should do.
[2021-04-06 16:25] LABS: Alveolar/Arterial O2 Gradient 42.4 mmHg; Base Excess ABG -6.8 mEq/l (+/-2.0); Carboxyhemoglobin 0.3 % THb (0-2.0); Fractional Inspired Oxygen 21 %; HCO3 ABG 17.5 mEq/l (22.0-26.0); Methemoglobin ABG 0.4 %THb (0-1.5); Oxygen Content ABG 12.3 %vol (16.0-22.0); Oxygen Saturation ABG 94.1 % (95.0-100.0); Oxyhemoglobin 92.4 % THb (90.0-100.0); PCO2 ABG 30.7 mmHg (35.0-45.0); PO2 ABG 70.6 mmHg (80.0-100.0); PO2 FiO2 Ratio Arterial Blood 3.36 %; Reduced Hemoglobin 6.9 %THb (0-5.0); Total Hemoglobin 9.4 g/dL (12.0-18.0); pH ABG 7.374 (7.350-7.450)
[2021-04-06 16:28] LABS: Device ROOM AIR; Modified Allen's Test Pass; Site Drawn LEFT BRACHIAL
[2021-04-06 16:41] LABS: Hematocrit 24.4 % (42.0-52.0); Hemoglobin 8.1 g/dL (14.0-18.0); Immature Reticulocyte Fraction 19.2 % (3.0-15.9); Reticulocyte Percent 1.22 % (0.7-4.3); Reticulocytes Absolute 0.04 B/L (32.2-175.7)
[2021-04-06 16:50] LABS: Lactate Dehydrogenase 265 U/L (313-618)
--- NOTE | 2021-04-06 16:50 | PC.NURSE ---
Spoke with Dr. Mendez regarding patient's elevated HR of 130-150. Cardizem drip at 10mg/hr. Last BP 102/67. New order to continue cardizem drip at current rate, call with digoxin level, as we may be able to give extra digoxin to help control heart rate
[2021-04-06 16:58] LABS: Anion Gap 13 mmol/L (8-16); Blood Urea Nitrogen 112 mg/dL (9-20); Calcium 8.2 mg/dL (8.4-10.2); Carbon Dioxide 18 mmol/L (22-30); Chloride 103 mmol/L (98-107); Estimated CRCL calculation 18 ml/min; Estimated Glomerular Filt Rate 10; Glucose 129 mg/dL (75-110); Magnesium 2.1 mg/dL (1.6-2.3); Sodium 134 mmol/L (137-145)
--- NOTE | 2021-04-06 17:00 | PM.IMHP ---
H&P: HPI History of Present Illness Date/Time: 04/06/21 17:00 Chief Complaint: Weakness and cough. 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 He typically goes to [facility] however apparently he did not want to return there today after his most recent hospitalization and thus he requested to come here to [place]. He was hospitalized at their facility in February 2021 with a right foot wound, found to have osteomyelitis for which he was treated with IV cefepime as an outpatient. He did develop a right upper extremity clot secondary to the PICC line and his most recent appointment with the infectious disease physician was reportedly unremarkable although it does not sound as though he has had repeat radiographs. He continues to have erythema and some pain at the right foot, but much better than what it had been previously. He was hospitalized again just several weeks ago after he was found to have a hemoglobin of 3.6 g on routine labs. He was immediately sent to the hospital and had blood redrawn at that time and notes that the 1st draw was erroneously as it was drawn from his PICC line. Incidentally he was found to have a right-sided pleural effusion which was drained and per his primary care provider it was transudative and there was no evidence of malignancy. He has been home since that time and has been doing okay however the past week he has become progressively more fatigued with cough that is rarely productive of clear phlegm. On arrival to the emergency department today he was found to be in atrial fibrillation with rapid ventricular response although he did not feel his heart beating that fast. He has since been started on a Cardizem drip and has received a dose of digoxin as his level was subtherapeutic, with improvement in his rate. Pertinent laboratory data today includes a significant increase in BUN and creatinine and white blood cell count of 28,800. Several imaging studies were also obtained and he was found to have a recurrent, large right-sided pleural effusion with complete collapse of the right lung with findings suggestive of an exudate of effusion. On fortunately a thoracentesis is not able to be done today as he took his apixaban this morning. Interestingly he is not really short of breath although he describes some mild right-sided pleuritic pain. He has not had fever, chills, or sweats. No sinus congestion, rhinorrhea, otalgia, or odynophagia. He denies myalgias and arthralgias. Appetite has been okay. No nausea, vomiting, or diarrhea. His suprapubic catheter is draining but he has noticed a decrease in urine output and darker colored urine the past couple of days. No abdominal or back pain. Review of Systems Review of Systems: Narrative: 12 systems were reviewed with pertinent positives and negatives as per HPI. No fever, chills, or sweats. He denies recent cold and flu symptoms. No exposure to those positive for COVID-19. He denies dysphagia and concerns for aspiration. No known history of coronary disease or congestive heart failure. No diarrhea. Except as documented, all other systems were reviewed and are negative. [facility] Past Medical History Medical History (Updated 04/06/21 @ 22:56 by Catherine Lockwood PA-C) Amputation of fifth toe of right foot Chronic anemia Chronic anticoagulation Chronic back pain Chronic kidney disease, stage 3 Hyperlipidemia Hypertension Incomplete paraplegia Neuropathy Osteomyelitis Spine, right foot. Paroxysmal atrial fibrillation Type 2 diabetes mellitus Surgical History Surgical History (Updated 04/06/21 @ 22:53 by Catherine
[2021-04-06 17:01] LABS: Erythrocyte Sedimentation Rate > 140 mm/hr (0-20)
[2021-04-06 17:27] LABS: Digoxin < 0.4 ng/mL (0.8-2.0)
--- NOTE | 2021-04-06 17:32 | PC.NURSE ---
Notified Dr. Mendez of Digoxin level of <0.4. New order to give 250 mcg IVP of Digoxin x1
[2021-04-06] MEDS: DIGOXIN INJ 250 MCG/ML 2 ML AMP (*BKC) IV PUSH (17:45)
[2021-04-06 17:46] LABS: CRP 18.2 mg/dL (<1.0)
[2021-04-06 17:51] LABS: Iron 27 ug/dL (49-181)
[2021-04-06 17:57] LABS: Folic Acid 10.6 ng/mL (2.76->20)
[2021-04-06 18:02] LABS: Percent Iron Saturation 22 % (20-50)
[2021-04-06 18:05] LABS: Procalcitonin 2.1 ng/mL
[2021-04-06] MEDS: HYDROcodone/acetaminophen (*CRX) 5-325 MG TABLET 1 TAB PO (22:50)
[2021-04-06 23:33] LABS: Hemoglobin A1C 5.1 % (<5.7)
[2021-04-07] VITALS (15 sets, daily range): BP systolic 92–117; BP diastolic 52–62; PULSE 79–109; RESP 20–28; TEMP 36.2–36.9; O2SAT 93–97; BMI 36.0
--- NOTE | 2021-04-07 | ECHO_ITS ---
Patient Info Name: Teddy Bundy Age: 66 years : 1955 Gender: Male Ht: 77 in Wt: 293 lbs BSA: 2.72 m2 HR: 85 bpm BP: 96 / 52 mmHg Technical Quality: Good Exam Date: 04/07/2021 9:10 AM Exam Location: [facility] Patient Status: Inpatient Admit Date: 04/06/2021 Staff Ordering Physician: Néstor Mendez MD [employer] Feeder: Lily Attending Provider: Mable Huerta PA-C Exam Type: CA echo doppler color flow Study Info Indications I48.1 - Persistent atrial fibrillation Complete two-dimensional, color flow and Doppler transthoracic echocardiogram is performed. Summary 1. Complete two-dimensional, color flow and Doppler transthoracic echocardiogram is performed. 2. Left ventricular systolic function is normal, estimated at 65-70%. 3. The left ventricular diastolic function is abnormal. 4. Mild pulmonary hypertension, estimated pulmonary arterial systolic pressure is 45 mmHg. 5. There is moderate pericardial effusion. Left Ventricle Left ventricular chamber dimension is normal. Left ventricular systolic function is normal, estimated at 65-70%. There is no increased left ventricular wall thickness. Left ventricular septal wall motion is normal. The left ventricular diastolic function is abnormal. Right Ventricle Right ventricular chamber dimension is normal. Right ventricular systolic function is normal. Left Atria Left atrial chamber dimension is normal. Right Atria Right atrial chamber dimension is normal. Aortic Valve The aortic valve is trileaflet. There is no aortic valve sclerosis. There is no aortic valve stenosis. There is no aortic valve regurgitation. Pulmonic Valve The pulmonic valve is normal. There is no pulmonic valve stenosis. There is no pulmonic regurgitation. Mitral Valve The mitral valve has normal leaflets. There is no mitral valve stenosis. There is no mitral valve regurgitation. Tricuspid Valve The tricuspid valve leaflets are normal. There is no significant tricuspid valve stenosis. There is no tricuspid valve regurgitation. Mild pulmonary hypertension, estimated pulmonary arterial systolic pressure is 45 mmHg. Pericardium/Pleural The pericardium appears normal. There is moderate pericardial effusion. Inferior Vena Cava Normal inferior vena cava with >50% collapse upon inspiration consistent with elevated right atrial pressure, 15 mmHg. Aorta The aortic root size at the sinus of Valsalva is normal. The prox ascending aorta size is normal. Left Ventricular Outflow Tract Name Value Normal LVOT 2D LVOT Diameter 2.4 cm LVOT Doppler LVOT Peak Gradient 5 mmHg LVOT Mean Gradient 2 mmHg LVOT VTI 17 cm LVOT VTI/AV VTI Ratio 0.7 LVOT Stroke Volume 74 ml LVOT CO 18.0 l/min LVOT CI 6.6 l/min/m2 Mitral Valve Name
[2021-04-07] MEDS: BACLOFEN 10 MG TABLET PO ×3 (00:13→20:20)
[2021-04-07] MEDS: HYDROcodone/acetaminophen (*CRX) 5-325 MG TABLET 1 TAB PO (04:46)
[2021-04-07 04:56] LABS: Hematocrit 23.1 % (42.0-52.0); Hemoglobin 7.7 g/dL (14.0-18.0); Mean Corpuscular HGB Conc 33.3 g/dl (32-36); Mean Corpuscular Hemoglobin 28.1 pg (26-34); Mean Corpuscular Volume 84.3 fl (80-100); Mean Platelet Volume 10.8 fl (7.4-10.4); Platelet Count Result 333 k/mm3 (150-375); Red Blood Count 2.74 M/mm3 (4.6-6.20); Red Cell Distribution Width 16.4 % (11.5-14.5); White Blood Count 23.3 K/mm3 (4.5-10.0)
[2021-04-07 05:07] LABS: INR 1.6; Prothrombin Time 19.3 Seconds (11.1-14.7)
[2021-04-07 05:08] LABS: Partial Thromboplastin Time 40.8 SECONDS (22.3-36.8)
[2021-04-07 05:09] LABS: Alanine Aminotransferase 14 U/L (4-50); Albumin Level 2.3 g/dL (3.5-5.1); Alkaline Phosphatase 179 U/L (38-126); Anion Gap 11 mmol/L (8-16); Aspartate Amino Transferase 33 U/L (17-59); Bilirubin,Total 0.8 mg/dL (0.2-1.3); Blood Urea Nitrogen 112 mg/dL (9-20); Calcium 7.8 mg/dL (8.4-10.2); Carbon Dioxide 19 mmol/L (22-30); Chloride 103 mmol/L (98-107); Estimated CRCL calculation 19 ml/min; Estimated Glomerular Filt Rate 11; Glucose 132 mg/dL (75-110); Potassium 3.9 mmol/L (3.4-5.0); Sodium 133 mmol/L (137-145)
[2021-04-07 05:19] LABS: Albumin Level 2.3 g/dL (3.5-5.1); Amylase 52 U/L (30-110); Bilirubin,Total 0.8 mg/dL (0.2-1.3); Cholesterol 76 mg/dL (0-200); Triglycerides 68 mg/dL (<150)
--- NOTE | 2021-04-07 08:20 | PM.PNCARD ---
Progress Note: A&P Assessment and Plan (1) Atrial fibrillation: Code(s): I48.91 - Unspecified atrial fibrillation Status: Acute Assessment and Plan: 66 y/o with h/o paraplegia,osteomyelitis, atrial fibrillation, CKD, and HLD who presented with generalized weakness, MARJORIE on CKD, recurernt right pleural effusion and A fib with RVR Appears his BP runs low at baseline and he is on Midodinre for that Given hypotension will wean off Cardizem drip and avoid BB or CCB Will hold Dig due to MARJORIE. Cr 5.7 from baseline of 2 Will start Amiodarone for rate control (2) Diastolic congestive heart failure: Code(s): I50.30 - Unspecified diastolic (congestive) heart failure Status: Acute Assessment and Plan: 2D echo ordered He appears volume overloaded Nephrology consult pending. Will defer diuretic management to nephrology in the light of acute on chrnoic MARJORIE (3) Sepsis: Code(s): A41.9 - Sepsis, unspecified organism Status: Acute Assessment and Plan: Abx per primary team (4) Acute renal failure: Code(s): N17.9 - Acute kidney failure, unspecified Status: Acute Additional Plan Thank you for allowing me to participate in this patient's care, I will be following up with you. Please do not hesitate to call me for any other inquiry Subjective Date/time seen: 04/07/21 08:20 No overnight events. Still with significant lower ext edema. HR better, still on Cardizem drip Review of Systems Constitutional: Constitutional: Reports fatigue and Denies fever(s) Cardiovascular: Cardiovascular: Reports as per HPI Respiratory: Respiratory: Reports as per HPI Endocrine: Endocrine: Reports fatigue Exam Narrative: Exam Narrative: Awake alert oriented x3 not in acute distress Neck is supple , JVD Noted, no carotid bruit Chest: decreased breathing sound noted with significant crackles Cardiovascular: irregularly irregular rhythm with significant tachycardia noted, 2/6 systolic murmur noted left sternal border Abdomen: Soft nontender bowel sounds positive Extremities: +2 edema noted bilaterally Objective Data Vital Signs Vital Signs: Vital Signs - 24 hr 04/06/21 11:27 04/06/21 11:43 04/06/21 13:34 Temperature 37.6 C 36.9 C Pulse Rate 165 H 152 H 144 H Respiratory Rate 29 H 26 H Blood Pressure 108/59 L 110/72 Pulse Oximetry 93 97 04/06/21 15:09 04/06/21 15:40 04/06/21 16:00 Temperature 36.1 C L Pulse Rate 155 H 129 H 132 H Respiratory Rate 20 Blood Pressure 103/73 102/67 Pulse Oximetry 98 04/06/21 17:45 04/06/21 18:10 04/06/21 18:13 Temperature Pulse Rate 117 H 115 H 121 H Respiratory Rate Blood Pressure Pulse Oximetry 04/06/21 20:00 04/06/21 22:00 04/06/21 22:51 Temperature 36.5 C Pulse Rate 109 H 105 H 102 H Respiratory Rate 20 Blood Pressure 150/99 H Pulse Oximetry 98 04/06/21 23:15 04/06/21 23:24 04/07/21 02:12 Temperature 36.6 C Pulse Rate 103 H 100 92 Respiratory Rate 20 20 Blood Pressure 107/60 Pulse Oximetry 93 93 04/07/21 04:00 04/07/21 06:00 Temperature 36.7 C Pulse Rate 87 88 Respiratory Rate 20 Blood Pressure 94/55 L Pulse Oximetry 93 Intake/Output Intake/Output: Intake & Output 04/04/21 04/05/21 04/06/21 04/07/21 23:59 23:59 23:59 23:59 Intake Total 569.6 600 Output Total 100 650 Balance 469.6 -50 Meds/Results Medications: Active Medications Generic Name Dose Route Start Last Admin Trade Name Freq PRN Reason Stop Dose Admin Acetaminophen 1,000 mg 04/06/21 23:09 Acetaminophen 500 Mg Tablet PO Q6H PRN MILD Pain or Fever Hydrocodone Bitart/Acetaminophen 1 tab 04/06/21 14:29 04/07/21 04:46 Hydrocodone/Acetaminophen (*Crx) 5-325 Mg Tablet PO 1 tab Q4H PRN Administration Pain Rated 4-6 Baclofen 10 mg 04/06/21 23:55 04/07/21 06:07 Baclofen 10 Mg Tablet PO Not Given Q8HR JAREN Collagenase 1 ap
[2021-04-07 08:26] LABS: Glucose Point of Care 115 mg/dl (65-105)
[2021-04-07] MEDS: MIDODRINE HCL 10 MG TABLET PO ×3 (08:33→18:07)
[2021-04-07] MEDS: GABAPENTIN 100 MG CAPSULE 200 MG PO ×2 (08:33→18:07)
[2021-04-07] MEDS: PRAVASTATIN SODIUM 20 MG TABLET 40 MG PO (08:33)
[2021-04-07] MEDS: TOLNAFTATE 1% POWDER 45 GM BTL 1 APPLIC TOPICAL ×2 (08:34→18:07)
[2021-04-07] MEDS: DIGOXIN TAB 125 MCG TABLET PO (08:34)
[2021-04-07] MEDS: COLLAGENASE OINT 30 GM TUBE 1 APPLIC TOPICAL (08:34)
[2021-04-07] MEDS: FERROUS SULFATE 324 MG TABLET PO (08:34)
[2021-04-07] MEDS: FOLIC ACID 1 MG TABLET PO (08:34)
--- NOTE | 2021-04-07 08:35 | P.PNIM_ITS ---
Progress Note: A&P Assessment and Plan (1) Sepsis: Code(s): A41.9 - Sepsis, unspecified organism Status: Acute Assessment and Plan: Sepsis present on admission and supported by tachycardia, leukocytosis, and ac scott on chronic kidney injury. He is afebrile. Possible sources include urine, right foot wound, and pleural effusion. Slight improvement in leukocytosis today. * He has been started on empiric broad-spectrum antibiotics including vancomycin and imipenem which should cover any and all pathogens. * Blood, and urine cultures pending. Foot wound cultures ordered, awaiting co llection. * Planning for thoracentesis this afternoon and will send pleural fluid for culture as well. (2) Pleural effusion on right: Code(s): J90 - Pleural effusion, not elsewhere classified Status: Acute Assessment and Plan: evidence of large right pleural effusion with complete collapse of right lung. He is maintaining adequate oxygenation on room air. * Diagnostic thoracentesis arranged for today. NPO for procedure * Cultures and cytology have been ordered * Consider pulmonology consultation based results (3) Wound of right foot: Code(s): S91.301A - Unspecified open wound, right foot, initial encounter Status: Acute Assessment and Plan: X-ray does not show osteomyelitis. He is established with wound care in [place]. * Continue antibiotics as detailed above. * Appreciate wound care consult. Initiate santyl and gentamycin ointment per wound care recommendations * Right foot wound culture ordered, awaiting collection (4) Acute on chronic renal failure: Code(s): N17.9 - Acute kidney failure, unspecified; N18.9 - Chronic kidney disease, unspecified Status: Acute Assessment and Plan: Etiology is not entirely clear but may be related to recent antibiotics or ATN from sepsis. Patient has noticed a decrease in urine output although maintains that he has been eating and drinking as per usual. He has not had any vomiting or diarrhea. No evidence of hydronephrosis on imaging. Minimal improvement in creatinine today though BUN remains elevated. * Appreciate nephrology consultation * Avoid nephrotoxic agents and renally dose medications * Monitor renal function closely, monitor I&O. (5) Abnormal urinalysis: Code(s): R82.90 - Unspecified abnormal findings in urine Status: Acute Assessment and Plan: He has a suprapubic catheter and likely has chronically abnormal urine. * Urine culture pending. (6) Atrial fibrillation with rapid ventricular response: Code(s): I48.91 - Unspecified atrial fibrillation Status: Acute Assessment and Plan: With rate up to 160. Likely exacerbated by infection. He was started on Cardizem drip and rate has improved, currently hovering around 90s. * Appreciate cardiology consultation * Cardizem drip has been discontinued. * Started on amiodarone for rate control. Beta blockers and calcium channel blockers should be avoided per cardiology given his history of hypotension. * Digoxin on hold given MARJORIE * Eliquis on hold given plans for thoracentesis. (7) Chronic anemia: Code(s): D64.9 - Anemia, unspecified Status: Acute Assessment and Plan: Labs appear consistent with baseline. * Monitor H&H. Repeat this afternoon to ensure remaining stable given slight decline to 7.7, which is likely dilutional. * Continue ferrous sulfate (8) Hypertension: Code(s): I10 - Esse
--- NOTE | 2021-04-07 08:35 | PM.IMPN ---
Progress Note: A&P Assessment and Plan (1) Sepsis: Code(s): A41.9 - Sepsis, unspecified organism Status: Acute Assessment and Plan: Sepsis present on admission and supported by tachycardia, leukocytosis, and acute on chronic kidney injury. He is afebrile. Possible sources include urine, right foot wound, and pleural effusion. Slight improvement in leukocytosis today. He has been started on empiric broad-spectrum antibiotics including vancomycin and imipenem which should cover any and all pathogens. Blood, and urine cultures pending. Foot wound cultures ordered, awaiting collection. Planning for thoracentesis this afternoon and will send pleural fluid for culture as well. (2) Pleural effusion on right: Code(s): J90 - Pleural effusion, not elsewhere classified Status: Acute Assessment and Plan: evidence of large right pleural effusion with complete collapse of right lung. He is maintaining adequate oxygenation on room air. Diagnostic thoracentesis arranged for today. NPO for procedure Cultures and cytology have been ordered Consider pulmonology consultation based results (3) Wound of right foot: Code(s): S91.301A - Unspecified open wound, right foot, initial encounter Status: Acute Assessment and Plan: X-ray does not show osteomyelitis. He is established with wound care in [place]. Continue antibiotics as detailed above. Appreciate wound care consult. Initiate santyl and gentamycin ointment per wound care recommendations Right foot wound culture ordered, awaiting collection (4) Acute on chronic renal failure: Code(s): N17.9 - Acute kidney failure, unspecified; N18.9 - Chronic kidney disease, unspecified Status: Acute Assessment and Plan: Etiology is not entirely clear but may be related to recent antibiotics or ATN from sepsis. Patient has noticed a decrease in urine output although maintains that he has been eating and drinking as per usual. He has not had any vomiting or diarrhea. No evidence of hydronephrosis on imaging. Minimal improvement in creatinine today though BUN remains elevated. Appreciate nephrology consultation Avoid nephrotoxic agents and renally dose medications Monitor renal function closely, monitor I&O. (5) Abnormal urinalysis: Code(s): R82.90 - Unspecified abnormal findings in urine Status: Acute Assessment and Plan: He has a suprapubic catheter and likely has chronically abnormal urine. Urine culture pending. (6) Atrial fibrillation with rapid ventricular response: Code(s): I48.91 - Unspecified atrial fibrillation Status: Acute Assessment and Plan: With rate up to 160. Likely exacerbated by infection. He was started on Cardizem drip and rate has improved, currently hovering around 90s. Appreciate cardiology consultation Cardizem drip has been discontinued. Started on amiodarone for rate control. Beta blockers and calcium channel blockers should be avoided per cardiology given his history of hypotension. Digoxin on hold given MARJORIE Eliquis on hold given plans for thoracentesis. (7) Chronic anemia: Code(s): D64.9 - Anemia, unspecified Status: Acute Assessment and Plan: Labs appear consistent with baseline. Monitor H&H. Repeat this afternoon to ensure remaining stable given slight decline to 7.7, which is likely dilutional. Continue ferrous sulfate (8) Hypertension: Code(s): I10 - Essential (primary) hypertension Status: Acute Assessment and Plan: Blood pressures were a bit soft on arrival but have improved with rate control. He has actually been having issues with orthostatic hypotension and was started on midodrine at the outside facility and it looks like his antihypertensives were discontinued. Continue to monitor blood pressures closely. Continue midodrine As above, avoid BB and CCB
[2021-04-07] MEDS: AMIODARONE HCL 200 MG TABLET 400 MG PO ×2 (11:38→18:07)
[2021-04-07 11:51] LABS: Glucose Point of Care 132 mg/dl (65-105)
--- NOTE | 2021-04-07 12:13 | PM.CNNEP ---
Assessment and Plan Assessment and plan (1) MARJORIE (acute kidney injury): Code(s): N17.9 - Acute kidney failure, unspecified Status: Acute Assessment and Plan: etiology? perhaps a combination of relative hypotension + afib with RVR + infection no evidence of obstruction by imaging check urine electrolytes and urine eosinophils - however, since he has a chronic hernandez, interpretation maybe difficult maximize efforts to optimize renal perfusion trial of IV diuretics tomorrow if BP better (2) Stage 3b chronic kidney disease: Code(s): N18.32 - Chronic kidney disease, stage 3b Status: Acute Assessment and Plan: baseline creatinine ~ 1.7 - 2.2mg/dl in the last few months presumably due to DM, vascular disease, hypertension/hypotension and possible recurrent infections(?) (3) Sepsis: Code(s): A41.9 - Sepsis, unspecified organism Status: Acute Assessment and Plan: as evidence by admission source?? follow culture data on broad spectrum antibiotics (4) Pleural effusion on right: Code(s): J90 - Pleural effusion, not elsewhere classified Status: Acute Assessment and Plan: s/p diagnostic/therapeutic thoracentesis follow-up on pleural fluid analysis (5) Atrial fibrillation with rapid ventricular response: Code(s): I48.91 - Unspecified atrial fibrillation Status: Acute Assessment and Plan: Cardiology follow with recommendations noted attempt rate control strategy (6) Wound of right foot: Code(s): S91.301A - Unspecified open wound, right foot, initial encounter Status: Acute Assessment and Plan: local wound care wound care following Long and extensive discussion (> 20 minutes) with daughter at bedside regarding the multiple issues as noted above affecting the patient including his worsening kidney function as well. Will continue to follow. History of Present Illness Reason for Consult Consult date: 04/07/21 Reason for consult: acute renal failure (on chronic kidney disease) Chief Complaint Chief complaint: afib rvr,acute on chronic renal failure,pleural,ef History of Present Illness Narrative: The patient is a 66-year-old [place] male with an extensive past medical history as outlined below who presented to the [facility] ER via EMS from home for evaluation of weakness and cough. The patient usually gets most of his care to [facility] but refused to go back there after his last hospitalization there which apparently is where he was discovered to have right foot osteomyelitis treated with IV antibiotic therapy and a more recent hospitalization for severe anemia although it was noted that time that he did have a right-sided pleural effusion. He did apparently have this drained it was felt that this effusion was transudative with no evidence of malignancy per her his primary care physician. Since he has been home from his last hospitalization he is noted to himself become more progressively fatigued for the last several days if not longer. As the symptoms continued to worsen and given his complex medical history at baseline, he was transferred to the ER for further evaluation. Workup and evaluation emergency room demonstrated the patient to be in atrial fibrillation with a rapid ventricular rate associated with relative hypotension. Routine blood test demonstrated a significant elevation in his BUN and creatinine comparison to baseline as long is a significant leukocytosis. Several imaging studies were done which demonstrated the large right side pleural effusion which appear to have recurred although the extent of the pleural effusion was so large that resulted in collapse of the right lung. He has a suprapubic catheter which is draining but reportedly he has noted the urine output to be of a darker color in comparison to baseline. Due to concerns of possible sepsis, ap
[2021-04-07 12:32] LABS: Lactate Dehydrogenase 339 U/L (313-618)
[2021-04-07 12:53] LABS: Appearance Pleural Fluid Cloudy (Clear); Color Pleural Fluid Yellow (Colorless); Nucleated Cell Pleural Fluid 16172 /uL (0-1000); Pleural fluid source Pleural fluid
[2021-04-07 12:54] LABS: Lymphocytes Pleural Fluid 1 %; Monocytes Pleural Fluid 2 %; Neutrophils Pleural Fluid 97 % (0-25); RBC Pleural Fluid 1398 /uL (0-0)
[2021-04-07] MEDS: GENTAMICIN SULFATE 0.1% OINT 15 GM TUBE 1 APPLIC TOPICAL (14:39)
[2021-04-07 14:49] LABS: Hematocrit 25.2 % (42.0-52.0); Hemoglobin 8.2 g/dL (14.0-18.0)
[2021-04-07 16:31] LABS: Glucose Point of Care 124 mg/dl (65-105)
[2021-04-07 21:52] LABS: Glucose Point of Care 174 mg/dl (65-105)
[2021-04-08] VITALS (19 sets, daily range): BP systolic 93–127; BP diastolic 52–65; PULSE 88–129; RESP 20–23; TEMP 35.9–36.6; O2SAT 92–98
[2021-04-08 05:09] LABS: Basophils Absolute Auto 0.1 K/mm3 (0.0-0.1); Basophils Percent Auto 0.2 % (0.2-1.2); Eosinophils Absolute Auto 0.2 K/mm3 (0-0.3); Eosinophils Percent Auto 0.7 % (0-4.4); Hematocrit 24.7 % (42.0-52.0); Hemoglobin 8.3 g/dL (14.0-18.0); Immature Granulocyte Absolute 0.24 K/mm3 (0.00-0.031); Immature Granulocyte Percent A 1.1 % (0-0.5); Lymphocytes Absolute Auto 1.19 K/mm3 (0.9-3.2); Lymphocytes Percent Auto 5.6 % (18.3-44.2); Mean Corpuscular HGB Conc 33.6 g/dl (32-36); Mean Corpuscular Hemoglobin 28.2 pg (26-34); Mean Platelet Volume 10.8 fl (7.4-10.4); Monocytes Absolute Auto 1.1 K/mm3 (0.1-0.6); Monocytes Percent Auto 5.2 % (2.6-8.5); Neutrophils Absolute Auto 18.7 K/mm3 (1.3-6.7); Neutrophils Percent Auto 87.2 % (45.5-73.1); Platelet Count Result 376 k/mm3 (150-375); Red Blood Count 2.94 M/mm3 (4.6-6.20); Red Cell Distribution Width 16.3 % (11.5-14.5); White Blood Count 21.4 K/mm3 (4.5-10.0)
[2021-04-08 05:29] LABS: Alanine Aminotransferase 11 U/L (4-50); Albumin Level 2.3 g/dL (3.5-5.1); Alkaline Phosphatase 161 U/L (38-126); Anion Gap 11 mmol/L (8-16); Aspartate Amino Transferase 24 U/L (17-59); Bilirubin,Total 0.8 mg/dL (0.2-1.3); Blood Urea Nitrogen 114 mg/dL (9-20); Calcium 7.9 mg/dL (8.4-10.2); Carbon Dioxide 19 mmol/L (22-30); Chloride 103 mmol/L (98-107); Estimated CRCL calculation 19 ml/min; Estimated Glomerular Filt Rate 11; Glucose 92 mg/dL (75-110); Potassium 4.1 mmol/L (3.4-5.0); Sodium 133 mmol/L (137-145)
[2021-04-08] MEDS: BACLOFEN 10 MG TABLET PO (05:36)
[2021-04-08 05:37] LABS: CRP 14.1 mg/dL (<1.0)
[2021-04-08 05:38] LABS: Anisocytosis 1+ (NORMAL); Hypochromasia 1+ (NORMAL); Platelet Estimate Adequate (Adequate)
[2021-04-08] MEDS: GENTAMICIN SULFATE 0.1% OINT 15 GM TUBE 1 APPLIC TOPICAL (08:31)
[2021-04-08] MEDS: TOLNAFTATE 1% POWDER 45 GM BTL 1 APPLIC TOPICAL ×2 (08:31→17:41)
[2021-04-08] MEDS: AMIODARONE HCL 200 MG TABLET 400 MG PO (08:31)
[2021-04-08] MEDS: FERROUS SULFATE 324 MG TABLET PO (08:31)
[2021-04-08] MEDS: COLLAGENASE OINT 30 GM TUBE 1 APPLIC TOPICAL (08:31)
[2021-04-08] MEDS: FOLIC ACID 1 MG TABLET PO (08:32)
[2021-04-08] MEDS: MIDODRINE HCL 10 MG TABLET PO (08:32)
[2021-04-08] MEDS: PRAVASTATIN SODIUM 20 MG TABLET 40 MG PO (08:32)
[2021-04-08] MEDS: GABAPENTIN 100 MG CAPSULE 200 MG PO (08:32)
[2021-04-08] MEDS: PROMETHAZINE HCL 25 MG/ML AMPUL 12.5 MG IV PUSH (08:39)
[2021-04-08 08:46] LABS: Glucose Point of Care 88 mg/dl (65-105)
[2021-04-08 09:22] LABS: Glucose Point of Care 119 mg/dl (65-105)
[2021-04-08 09:46] LABS: Alveolar/Arterial O2 Gradient 30.9 mmHg; Base Excess ABG -7.5 mEq/l (+/-2.0); Fractional Inspired Oxygen 21 %; HCO3 ABG 18.7 mEq/l (22.0-26.0); Oxygen Content ABG 12.8 %vol (16.0-22.0); PCO2 ABG 40.8 mmHg (35.0-45.0); PO2 FiO2 Ratio Arterial Blood 3.33 %; Total Hemoglobin 9.8 g/dL (12.0-18.0)
[2021-04-08 09:48] LABS: Device ROOM AIR; Site Drawn LEFT BRACHIAL
[2021-04-08] MEDS: NALOXONE HCL 0.4 MG/ML VIAL IV PUSH (10:06)
[2021-04-08 10:11] LABS: Lactic Acid Reflex 0.6 mmol/L (0.7-2.1)
[2021-04-08 10:13] LABS: Alanine Aminotransferase 12 U/L (4-50); Albumin Level 2.5 g/dL (3.5-5.1); Alkaline Phosphatase 168 U/L (38-126); Ammonia < 9 umol/L (9-30); Anion Gap 13 mmol/L (8-16); Aspartate Amino Transferase 24 U/L (17-59); Bilirubin,Total 0.8 mg/dL (0.2-1.3); Blood Urea Nitrogen 111 mg/dL (9-20); Calcium 7.9 mg/dL (8.4-10.2); Carbon Dioxide 16 mmol/L (22-30); Chloride 104 mmol/L (98-107); Estimated CRCL calculation 19 ml/min; Estimated Glomerular Filt Rate 11; Glucose 105 mg/dL (75-110); Potassium 4.2 mmol/L (3.4-5.0); Sodium 133 mmol/L (137-145)
--- NOTE | 2021-04-08 10:31 | PM.PNNEP ---
Progress Note: A&P Assessment and Plan (1) MARJORIE (acute kidney injury): Code(s): N17.9 - Acute kidney failure, unspecified Status: Acute Assessment and Plan: etiology? perhaps a combination of relative hypotension + afib with RVR + infection no evidence of obstruction by imaging check urine electrolytes and urine eosinophils - however, since he has a chronic hernandez, interpretation maybe difficult maximize efforts to optimize renal perfusion given mental status and concern for uremic encephalopathy, discussed trial of dialysis with family (see discussion below). (2) Stage 3b chronic kidney disease: Code(s): N18.32 - Chronic kidney disease, stage 3b Status: Acute Assessment and Plan: baseline creatinine ~ 1.7 - 2.2mg/dl in the last few months presumably due to DM, vascular disease, hypertension/hypotension and possible recurrent infections(?) (3) Sepsis: Code(s): A41.9 - Sepsis, unspecified organism Status: Acute Assessment and Plan: as evidence by admission source?? follow culture data on broad spectrum antibiotics (4) Pleural effusion on right: Code(s): J90 - Pleural effusion, not elsewhere classified Status: Acute Assessment and Plan: s/p diagnostic/therapeutic thoracentesis follow-up on pleural fluid analysis (5) Atrial fibrillation with rapid ventricular response: Code(s): I48.91 - Unspecified atrial fibrillation Status: Acute Assessment and Plan: Cardiology follow with recommendations noted attempt rate control strategy (6) Wound of right foot: Code(s): S91.301A - Unspecified open wound, right foot, initial encounter Status: Acute Assessment and Plan: local wound care wound care following Long and extensive discussion (> 20 minutes) with daughter at bedside regarding the multiple issues as noted above affecting the patient including his worsening kidney function as well. Will continue to follow. Subjective Date/time seen: 04/08/21 10:31 Obtunded at the time of my visit; no apparent distress noted but unresponsive to verbal and tactile stimuli; ABG and CT scan of head noted; daughter at bedside and discussed with patient's other daughter by phone patient's change in status. Exam Narrative: Exam Narrative: General: ill appearing male currently obtunded Heart: normal S1 and S2; no rub Lungs: decreasd breath sounds at bases Abdomen: soft, nontender, nondistended, positive bowel sounds Extremities: no cyanosis or clubbing; 2 - 3+ edema Skin: warm and dry Objective Data Vital Signs Vital Signs: Vital Signs Temp Pulse Resp BP Pulse Ox 04/08/21 08:50 36.1 C L 115 H 23 H 115/64 94 04/08/21 05:51 102 H 04/08/21 03:43 36.1 C L 106 H 20 127/65 92 04/08/21 01:32 102 H 04/08/21 00:00 36.2 C L 96 20 118/59 L 93 04/07/21 23:36 96 28 H 93 04/07/21 21:44 96 04/07/21 20:00 92 28 H 93 04/07/21 18:00 96 04/07/21 16:00 36.2 C L 106 H 28 H 92/52 L 93 04/07/21 14:00 92 04/07/21 12:00 36.9 C 94 20 104/53 L 97 04/07/21 11:17 95 20 117/62 95 04/07/21 11:16 109 H 24 H 107/60 97 Intake/Output Intake/Output: Intake & Output 04/05/21 04/06/21 04/07/21 04/08/21 23:59 23:59 23:59 23:59 Intake Total 569.6 1200 120 Output Total 100 2450 600 Balance 469.6 -1250 -480 Meds/Results Medications: Active Medications Generic Name Dose Route Start Last Admin Trade Name Freq PRN Reason Stop Dose Admin Acetaminophen 1,000 mg 04/06/21 23:09 Acetaminophen 500 Mg Tablet PO Q6H PRN MILD Pain or Fever Hydrocodone Bitart/Acetaminophen 1 tab 04/06/21 14:29 04/07/21 04:46 Hydrocodone/Acetaminophen (*Crx) 5-325 Mg Tablet PO 1 tab Q4H PRN Administration Pain Rated 4-6 Amiodarone HCl 400 mg 04/07/21 10:05 04/08/21 08:31 Amiodarone Hcl 200 Mg
--- NOTE | 2021-04-08 10:54 | PM.PNCARD ---
Progress Note: A&P Assessment and Plan (1) Atrial fibrillation: Code(s): I48.91 - Unspecified atrial fibrillation Status: Acute Assessment and Plan: 66 y/o with h/o paraplegia,osteomyelitis, atrial fibrillation, CKD, and HLD who presented with generalized weakness, MARJORIE on CKD, recurernt right pleural effusion and A fib with RVR Appears his BP runs low at baseline and he is on Midodinre for that Given hypotension will avoid BB or CCB Will hold Dig due to MARJORIE. Cr 5.7 from baseline of 2 Started Amiodarone for rate control. HR acceptable He is on Eliquis. okay to hold in case need dialysis access (2) Diastolic congestive heart failure: Code(s): I50.30 - Unspecified diastolic (congestive) heart failure Status: Acute Assessment and Plan: 2D revealed normal LV function, no significant valve disease, mild pulmonary HTN He appears volume overloaded Will start lasix drip at 6 mg/hour after one bolus of 80 mg Still waiting nephrology recommendations (3) Sepsis: Code(s): A41.9 - Sepsis, unspecified organism Status: Acute Assessment and Plan: Abx per primary team (4) Acute renal failure: Code(s): N17.9 - Acute kidney failure, unspecified Status: Acute Additional Plan Thank you for allowing me to participate in this patient's care, I will be following up with you. Please do not hesitate to call me for any other inquiry Subjective Date/time seen: 04/08/21 10:54 He is obtunded this am. ABG and stat CT done. Review of Systems Review of Systems: ROS unobtainable: Yes unobtainable due to medical condition Exam Narrative: Exam Narrative: Obtunded Neck is supple , JVD Noted, no carotid bruit Chest: decreased breathing sound noted with significant crackles Cardiovascular: irregularly irregular rhythm with significant tachycardia noted, 2/6 systolic murmur noted left sternal border Abdomen: Soft nontender bowel sounds positive Extremities: +++ edema noted bilaterally Objective Data Vital Signs Vital Signs: Vital Signs - 24 hr 04/07/21 11:16 04/07/21 11:17 04/07/21 12:00 Temperature 36.9 C Pulse Rate 109 H 95 94 Respiratory Rate 24 H 20 20 Blood Pressure 107/60 117/62 104/53 L Pulse Oximetry 97 95 97 04/07/21 14:00 04/07/21 16:00 04/07/21 18:00 Temperature 36.2 C L Pulse Rate 92 106 H 96 Respiratory Rate 28 H Blood Pressure 92/52 L Pulse Oximetry 93 04/07/21 20:00 04/07/21 21:44 04/07/21 23:36 Temperature Pulse Rate 92 96 96 Respiratory Rate 28 H 28 H Blood Pressure Pulse Oximetry 93 93 04/08/21 00:00 04/08/21 01:32 04/08/21 03:43 Temperature 36.2 C L 36.1 C L Pulse Rate 96 102 H 106 H Respiratory Rate 20 20 Blood Pressure 118/59 L 127/65 Pulse Oximetry 93 92 04/08/21 05:51 04/08/21 08:00 04/08/21 08:50 Temperature 36.1 C L Pulse Rate 102 H 129 H 115 H Respiratory Rate 23 H Blood Pressure 115/64 Pulse Oximetry 94 04/08/21 09:39 Temperature Pulse Rate Respiratory Rate Blood Pressure Pulse Oximetry 92 Intake/Output Intake/Output: Intake & Output 04/05/21 04/06/21 04/07/21 04/08/21 23:59 23:59 23:59 23:59 Intake Total 569.6 1200 120 Output Total 100 2450 600 Balance 469.6 1255 -480 Meds/Results Medications: Active Medications Generic Name Dose Route Start Last Admin Trade Name Freq PRN Reason Stop Dose Admin Acetaminophen 1,000 mg 04/06/21 23:09 Acetaminophen 500 Mg Tablet PO Q6H PRN MILD Pain or Fever Hydrocodone Bitart/Acetaminophen 1 tab 04/06/21 14:29 04/07/21 04:46 Hydrocodone/Acetaminophen (*Crx) 5-325 Mg Tablet PO 1 tab Q4H PRN Administration Pain Rated 4-6 Amiodarone HCl 400 mg 04/07/21 10:05 04/08/21 08:31 Amiodarone Hcl 200 Mg Tablet PO 400 mg BIDWM JAREN Administration Baclofen 10 mg 04/06/21 23:55 04/08/21 05:36 Baclofen 10 Mg Tablet PO 10 mg Q8HR JAREN Administration
[2021-04-08] MEDS: FUROSEMIDE INJ 100 MG/10 ML VIAL 80 MG IV PUSH (12:06)
[2021-04-08] MEDS: FUROSEMIDE INJ 100 MG in SODIUM CHLORIDE 0.9% IV 90 ML 6 MG IV CONT (12:06)
[2021-04-08 12:24] LABS: Glucose Point of Care 95 mg/dl (65-105)
[2021-04-08 17:02] LABS: Glucose Point of Care 90 mg/dl (65-105)
--- NOTE | 2021-04-08 17:03 | PM.IMPN ---
Progress Note: A&P Assessment and Plan (1) Altered mental status: Code(s): R41.82 - Altered mental status, unspecified Status: Acute Assessment and Plan: suspect toxic metabolic encephalopathy plans for hemodialysis discussed with daughters and discussed with Nephrology (2) Sepsis: Code(s): A41.9 - Sepsis, unspecified organism Status: Acute Assessment and Plan: Sepsis present on admission and supported by tachycardia, leukocytosis, and acute on chronic kidney injury. He is afebrile. Possible sources include urine, right foot wound, and pleural effusion. Slight improvement in leukocytosis today. He has been started on empiric broad-spectrum antibiotics including vancomycin and imipenem which should cover any and all pathogens. Blood, and urine cultures pending. Foot wound cultures ordered, awaiting collection. Planning for thoracentesis this afternoon and will send pleural fluid for culture as well. (3) Pleural effusion on right: Code(s): J90 - Pleural effusion, not elsewhere classified Status: Acute Assessment and Plan: evidence of large right pleural effusion with complete collapse of right lung. He is maintaining adequate oxygenation on room air. Diagnostic thoracentesis arranged for today. NPO for procedure Cultures and cytology have been ordered Consider pulmonology consultation based results (4) Wound of right foot: Code(s): S91.301A - Unspecified open wound, right foot, initial encounter Status: Acute Assessment and Plan: X-ray does not show osteomyelitis. He is established with wound care in [place]. Continue antibiotics as detailed above. Appreciate wound care consult. Initiate santyl and gentamycin ointment per wound care recommendations Right foot wound culture ordered, awaiting collection (5) Acute on chronic renal failure: Code(s): N17.9 - Acute kidney failure, unspecified; N18.9 - Chronic kidney disease, unspecified Status: Acute Assessment and Plan: Etiology is not entirely clear but may be related to recent antibiotics or ATN from sepsis. Patient has noticed a decrease in urine output although maintains that he has been eating and drinking as per usual. He has not had any vomiting or diarrhea. No evidence of hydronephrosis on imaging. Minimal improvement in creatinine today though BUN remains elevated. Appreciate nephrology consultation Avoid nephrotoxic agents and renally dose medications Monitor renal function closely, monitor I&O. (6) Abnormal urinalysis: Code(s): R82.90 - Unspecified abnormal findings in urine Status: Acute Assessment and Plan: He has a suprapubic catheter and likely has chronically abnormal urine. Urine culture pending. (7) Atrial fibrillation with rapid ventricular response: Code(s): I48.91 - Unspecified atrial fibrillation Status: Acute Assessment and Plan: With rate up to 160. Likely exacerbated by infection. He was started on Cardizem drip and rate has improved, currently hovering around 90s. Appreciate cardiology consultation Cardizem drip has been discontinued. Started on amiodarone for rate control. Beta blockers and calcium channel blockers should be avoided per cardiology given his history of hypotension. Digoxin on hold given MARJORIE Eliquis on hold given plans for thoracentesis. (8) Chronic anemia: Code(s): D64.9 - Anemia, unspecified Status: Acute Assessment and Plan: Labs appear consistent with baseline. Monitor H&H. Repeat this afternoon to ensure remaining stable given slight decline to 7.7, which is likely dilutional. Continue ferrous sulfate (9) Hypertension: Code(s): I10 - Essential (primary) hypertension Status: Acute Assessment and Plan: Blood pressures were a bit soft on arrival but have improved with rate control. He has a
[2021-04-08 21:22] LABS: Haptoglobin 266 mg/dL (43-212)
[2021-04-08 21:46] LABS: Glucose Point of Care 100 mg/dl (65-105)
[2021-04-09] VITALS (32 sets, daily range): BP systolic 108–163; BP diastolic 46–87; PULSE 66–156; RESP 20–28; TEMP 36–36.7; O2SAT 0–99
[2021-04-09 00:22] LABS: Creatinine Urine 11.9 mg/dL; Total Protein Urine Random 19 mg/dL
[2021-04-09 00:30] LABS: Sodium Urine Random 81 meq/L
[2021-04-09] MEDS: FUROSEMIDE INJ 100 MG in SODIUM CHLORIDE 0.9% IV 90 ML 6 MG IV CONT (01:30)
[2021-04-09 04:10] LABS: Eosinophil Urine None Seen % (None Seen)
[2021-04-09 05:57] LABS: Albumin Level 2.5 g/dL (3.5-5.1); Anion Gap 11 mmol/L (8-16); Blood Urea Nitrogen 112 mg/dL (9-20); Carbon Dioxide 18 mmol/L (22-30); Chloride 104 mmol/L (98-107); Estimated CRCL calculation 19 ml/min; Estimated Glomerular Filt Rate 11; Glucose 101 mg/dL (75-110); Phosphorus 6.9 mg/dL (2.5-4.5); Sodium 133 mmol/L (137-145)
[2021-04-09 07:46] LABS: Glucose Point of Care 99 mg/dl (65-105)
--- NOTE | 2021-04-09 07:54 | WPDCDIQUERY2 ---
CDI Query Clarification Request -Acute decompensation of diastolic CHF has been documented by the [employer] administrator -furosemide drip has been ordered -No mention of CHF by hospitalists Please clarify if acute diastolic CHF has been ruled in or ruled out. <Vicky Fernandes RN - Last Filed: 04/09/21 08:07> Clarified Diagnosis (1) Empyema: Code(s): J86.9 - Pyothorax without fistula <Vicky Fernandes RN - Last Filed: 04/09/21 08:07> Status: Acute <Vicky Fernandes RN - Last Filed: 04/09/21 08:07> Assessment and Plan: S/p Thoracentesis Exudate On Imipenem and Vanc Blood cx negative Continue to monitor <Mirian Chavarria MD - Last Filed: 04/09/21 12:34> (2) Acute diastolic (congestive) heart failure: Code(s): I50.31 - Acute diastolic (congestive) heart failure <Vicky Fernandes RN - Last Filed: 04/09/21 08:07> Status: Acute <Vicky Fernandes RN - Last Filed: 04/09/21 08:07> Assessment and Plan: Continue diuresis Strict I/O's daily Daily weights Follow cardiology recs <Mirian Chavarria MD - Last Filed: 04/09/21 12:34>
--- NOTE | 2021-04-09 08:56 | PM.PNCARD ---
Progress Note: A&P Assessment and Plan (1) Atrial fibrillation: Code(s): I48.91 - Unspecified atrial fibrillation Status: Acute Assessment and Plan: 66 y/o with h/o paraplegia,osteomyelitis, atrial fibrillation, CKD, and HLD who presented with generalized weakness, MARJORIE on CKD, recurernt right pleural effusion and A fib with RVR Appears his BP runs low at baseline and he is on Midodinre for that. will avoid BB or CCB Will hold Dig due to MARJORIE. Cr 5.7 from baseline of 2 Started Amiodarone for rate control. He has not been receiving that due to AMS. HR acceptable. Consider IV amiodarone till mental status better Eliquis on hold for dialysis access (2) Diastolic congestive heart failure: Code(s): I50.30 - Unspecified diastolic (congestive) heart failure Status: Acute Assessment and Plan: 2D revealed normal LV function, no significant valve disease, mild pulmonary HTN Started on lasix drip. plan for dialysis per nephrology (3) Sepsis: Code(s): A41.9 - Sepsis, unspecified organism Status: Acute Assessment and Plan: Abx per primary team (4) Acute renal failure: Code(s): N17.9 - Acute kidney failure, unspecified Status: Acute Subjective Date/time seen: 04/09/21 08:56 Remains lethargic, somewhat better compared to yesterday as now arousable HR ~ 110-120. He has not been receiving his PO amiodarone due to his AMS Review of Systems Review of Systems: ROS unobtainable: Yes unobtainable due to medical condition Exam Narrative: Exam Narrative: Obtunded Neck is supple , JVD Noted, no carotid bruit Chest: decreased breathing sound noted with significant crackles Cardiovascular: irregularly irregular rhythm with significant tachycardia noted, 2/6 systolic murmur noted left sternal border Abdomen: Soft nontender bowel sounds positive Extremities: +++ edema noted bilaterally Objective Data Vital Signs Vital Signs: Vital Signs - 24 hr 04/08/21 09:39 04/08/21 10:00 04/08/21 12:00 Temperature Pulse Rate 111 H 110 H Respiratory Rate Blood Pressure Pulse Oximetry 92 04/08/21 12:52 04/08/21 14:00 04/08/21 16:00 Temperature 36.0 C L Pulse Rate 105 H 96 99 Respiratory Rate 20 Blood Pressure 93/55 L Pulse Oximetry 98 04/08/21 17:34 04/08/21 18:00 04/08/21 20:00 Temperature 35.9 C L 36.6 C Pulse Rate 113 H 90 90 Respiratory Rate 21 H 20 Blood Pressure 94/52 L 101/60 Pulse Oximetry 96 97 04/08/21 21:15 04/08/21 22:00 04/08/21 23:53 Temperature Pulse Rate 94 100 Respiratory Rate 20 Blood Pressure Pulse Oximetry 97 97 04/09/21 00:00 04/09/21 01:30 04/09/21 02:00 Temperature 36.4 C Pulse Rate 94 98 111 H Respiratory Rate 20 Blood Pressure 108/68 Pulse Oximetry 98 04/09/21 04:00 04/09/21 05:54 Temperature 36.4 C Pulse Rate 100 98 Respiratory Rate 20 Blood Pressure 110/70 Pulse Oximetry 99 Intake/Output Intake/Output: Intake & Output 04/06/21 04/07/21 04/08/21 04/09/21 23:59 23:59 23:59 23:59 Intake Total 569.6 1200 820 250 Output Total 100 2450 1450 1600 Balance 469.6 -1250 -630 -1350 Meds/Results Medications: Active Medications Generic Name Dose Route Start Last Admin Trade Name Freq PRN Reason Stop Dose Admin Acetaminophen 1,000 mg 04/06/21 23:09 Acetaminophen 500 Mg Tablet PO Q6H PRN MILD Pain or Fever Hydrocodone Bitart/Acetaminophen 1 tab 04/06/21 14:29 04/07/21 04:46 Hydrocodone/Acetaminophen (*Crx) 5-325 Mg Tablet PO 1 tab Q4H PRN Administration Pain Rated 4-6 Amiodarone HCl 400 mg 04/07/21 10:05 04/08/21 17:13 Amiodarone Hcl 200 Mg Tablet PO Not Given BIDWM JAREN Baclofen 10 mg 04/06/21 23:55 04/09/21 05:17 Baclofen 10 Mg Tablet PO Not Given Q8HR JAREN Collagenase 1 applic 04/07/21 09:00 04/08/21 08:31 Collagenase Oint 30 Gm Tube TOPICAL 1 applic DAILY JAREN Admini
[2021-04-09] MEDS: TOLNAFTATE 1% POWDER 45 GM BTL 1 APPLIC TOPICAL ×2 (08:58→20:31)
[2021-04-09] MEDS: GENTAMICIN SULFATE 0.1% OINT 15 GM TUBE 1 APPLIC TOPICAL (08:58)
[2021-04-09] MEDS: COLLAGENASE OINT 30 GM TUBE 1 APPLIC TOPICAL (08:58)
[2021-04-09] MEDS: METOPROLOL TARTRATE INJ 5 MG/5 ML VIAL IV PUSH ×3 (08:58→20:26)
[2021-04-09] MEDS: PROMETHAZINE HCL 25 MG/ML AMPUL 12.5 MG IV PUSH (09:24)
--- NOTE | 2021-04-09 10:23 | PM.CNGS ---
Assessment and Plan Assessment and plan (1) Acute on chronic renal failure: Code(s): N17.9 - Acute kidney failure, unspecified; N18.9 - Chronic kidney disease, unspecified Status: Acute Assessment and Plan: will setup for placement of temporary HD catheter (2) Altered mental status: Code(s): R41.82 - Altered mental status, unspecified Status: Acute Assessment and Plan: d/w family and they wish to proceed History of Present Illness Consult details Consult date: 04/09/21 Reason for consult: other (acute renal failure) Requesting physician: Mable Huerta PA-C Narrative: Pt is a 66 y/o c multiple med issues including paraplegia, CKD presenting c altered MS, weakness. Pt found to have acute renal failure, uremia. Pt obtunded and history obtained via chart. Nephrology and family wish to proceed c emergent hemodialysis. Surgery consulted for HD access. Review of Systems Review of Systems: ROS unobtainable: Yes unobtainable due to medical condition PMFSH Past Medical History Medical History Amputation of fifth toe of right foot Chronic anemia Chronic anticoagulation Chronic back pain Chronic kidney disease, stage 3 Hyperlipidemia Hypertension Incomplete paraplegia Neuropathy Osteomyelitis Spine, right foot. Paroxysmal atrial fibrillation Type 2 diabetes mellitus Surgical History Surgical History History of arthroplasty of left knee History of spinal surgery Lumbosacral fusion. History of suprapubic catheter Family History Family History Other Diabetes mellitus Hypertension Social History Social History Social History: The patient lives in [place] with his . 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 Lifelong nonsmoker. No alcohol or illicit substance abuse. He designates his , Katy, as his surrogate decision maker and he wishes to be a full code. Spiritual care concerns: No Meds Home Medications and Allergies Home Medications Medication Instructions Recorded Confirmed Type acetaminophen 1,000 mg PO Q6H PRN 04/06/21 04/06/21 History apixaban [Eliquis] 5 mg PO BID 04/06/21 04/06/21 History aspirin 81 mg PO DAILY 04/06/21 04/06/21 History baclofen 10 mg PO Q8H 04/06/21 04/06/21 History collagenase clostridium histo. 1 applic TOPICAL DAILY 04/06/21 04/06/21 History [Santyl] digoxin 125 mcg PO DAILY 04/06/21 04/06/21 History ferrous sulfate 325 mg PO DAILY 04/06/21 04/06/21 History folic acid 1 mg PO DAILY 04/06/21 04/06/21 History gabapentin 200 mg PO BID 04/06/21 04/06/21 History miconazole nitrate 1 applic TOPICAL BID 04/06/21 04/06/21 History midodrine 10 mg PO TID 04/06/21 04/06/21 History oxycodone-acetaminophen 1 tablet PO Q4H PRN 04/06/21 04/06/21 History pravastatin 40 mg PO DAILY 04/06/21 04/06/21 History Allergies Allergy/AdvReac Type Severity Reaction Status Date / Time No Known Allergies Allergy Verified 05/28/20 16:24 Vital Signs Vital Signs - 24 hr 04/08/21 12:00 04/08/21 12:52 04/08/21 14:00 Temperature 36.0 C L Pulse Rate 110 H 105 H 96 Respiratory Rate 20 Blood Pressure 93/55 L Pulse Oximetry 98 04/08/21 16:00 04/08/21 17:34 04/08/21 18:00 Temperature 35.9 C L Pulse Rate 99 113 H 90 Respiratory Rate 21 H Blood Pressure 94/52 L Pulse Oximetry 96 04/08/21 20:00 04/08/21 21:15 04/08/21 22:00 Temperature 36.6 C Pulse Rate 90 94 Respiratory Rate 20 Blood Pressure 101/60 Pulse Oximetry 97 97 04/08/21 23:53 04/09/21 00:00 04/09/21 01:30 Temperature 36.4 C Pulse Rate 100 94 98 Respiratory Rate 20 20 Blood Pressure 108/68 Pulse Oximetry 97 98 04/09/21 02:00 04/09/21 04:00 04/09/21 05:54 Temperature 36.4 C Pulse Rate 111 H 100 98 Respiratory Rate 20 Blood Pr
--- NOTE | 2021-04-09 11:17 | W.PM.PROC2 ---
Procedure Note - Detailed Date of Procedure 04/09/21 Pre-op Diagnosis acute renal failure Post-op Diagnosis same Procedure Performed placement of 12 Guyanese right internal jugular temporary hemodialysis catheter measuring 16 cm via ultrasound guidance Surgeon Fanny Dorsey MD Anesthesia local Indications 66 y/o M c multiple med issues including acute renal failure necessitating emergent hemodialysis Findings right internal jugular vein patent on ultrasound, 1st stick Description of Procedure The patient was placed in the supine position. The bed was then placed in Trendelenburg with the patient facing to his left to expose the right neck. I then prepped and draped the right neck in normal sterile fashion. A time-out was then done to verify the patient's identity as well as the procedure being performed. I then used the ultrasound to view the right internal jugular vein. Once this was identified, I localized the skin superior to the vein. I then used the 18 gauge needle to gain access into the right internal jugular vein, once again under ultrasound guidance. Once this was noted in good position, I removed the needle just leaving the guidewire in the vein. I then enlarged the incision around the guidewire in the right neck. I then dilated the vein and using the dilators provided in the kit under sterile Seldinger technique. Once the vein was adequately dilated, I was able to easily slide the catheter over the guidewire into the right internal jugular vein. I placed a 16 cm 12 Guyanese Trialysis catheter into the right internal jugular vein. I then removed the guidewire, now just leaving the catheter in the vein. I was then able to easily draw and flush from all 3 port sites . I then sutured the catheter in place in the right neck. Sterile dressing was then placed. I did not place final heparin flush into the catheter as the patient is going to get emergent dialysis today. The patient tolerated the procedure well. Estimated Blood Loss 5 Drains No Packing No Pathology none sent Complications No immediate complications Condition critical Disposition floor
--- NOTE | 2021-04-09 11:22 | PCDIET ---
Nutrition Follow-Up Complete: Nutrition Diagnosis: Increased protein/calorie needs related to wound healing as evidenced by multiple documented areas of skin breakdown. Nutrition Goal: Patient to consume 75% of meals/supplements or greater. Goal not met. Patient eating very little and sleeping soundly at time of visit. Plan for urgent dialysis noted. Recommend change from Ensure Compact (220kcal, 9g protein) to Nepro Shake (425kcal, 19g protein) TID for increased protein/kcal while undergoing dialysis. Recommend liberalizing to no added salt diet. Patient may also benefit from use of phosphorus binder. If no improvement in mental status after dialysis, will need to discuss nutrition support. Last recorded weight is 138.1 kg which is increased from last review, despite -I/O. Bowel Motility: No documented BM. If medically appropriate, would consider medication to promote BM. Labs Reviewed: BUN (112), Cr (5.4), Na (133), Alb (2.5), PO4 (6.9), Diamante Ca (9.2) Meds Noted: Pacerone, Ferrous Sulfate, Folic Acid, Furosemide, Imipenem, Novolog, Pravastatin, Phenergan, Vancomycin Additional Notes: Multiple skin issues documented. Will continue to monitor with same goal. Nutrition Monitoring and Evaluation: Follow up in 3 days.
[2021-04-09 11:42] LABS: Glucose Point of Care 99 mg/dl (65-105)
--- NOTE | 2021-04-09 12:58 | PM.IMPN ---
Progress Note: A&P Assessment and Plan (1) Empyema: Code(s): J86.9 - Pyothorax without fistula Status: Acute Assessment and Plan: S/p Thoracentesis Exudate On Imipenem and Vanc Blood cx negative Continue to monitor (2) Acute diastolic (congestive) heart failure: Code(s): I50.31 - Acute diastolic (congestive) heart failure Status: Acute Assessment and Plan: Continue diuresis Strict I/O's daily Daily weights Follow cardiology recs appreciate cardiology note (3) Altered mental status: Code(s): R41.82 - Altered mental status, unspecified Status: Acute Assessment and Plan: improved today patient is awake (4) Acute on chronic renal failure: Code(s): N17.9 - Acute kidney failure, unspecified; N18.9 - Chronic kidney disease, unspecified Status: Acute Assessment and Plan: status post temporary dialysis catheter placement appreciate surgery consult (5) Pleural effusion on right: Code(s): J90 - Pleural effusion, not elsewhere classified Status: Acute Assessment and Plan: status post thoracentesis studies consistent with exudate (6) Type 2 diabetes mellitus: Code(s): E11.9 - Type 2 diabetes mellitus without complications Status: Acute Assessment and Plan: blood sugars have been in the 90s continue to monitor poor p.o. intake (7) Hypertension: Code(s): I10 - Essential (primary) hypertension Status: Acute Assessment and Plan: patient more hypotensive on my did (8) Paroxysmal atrial fibrillation: Code(s): I48.0 - Paroxysmal atrial fibrillation Status: Acute Assessment and Plan: IV amiodarone continues telemetry continue to monitor (9) Acute on chronic kidney failure: Code(s): N17.9 - Acute kidney failure, unspecified; N18.9 - Chronic kidney disease, unspecified Status: Acute Assessment and Plan: planning for hemodialysis status post hemodialysis temporary catheter placement Subjective Date/time seen: 04/09/21 12:58 Interval history: date of service 04/09/2021: awake date of service 2020: unresponsive Date of service: 04/07/2021 Teddy Bundy is a 66-year-old male with a history of osteomyelitis of the spine with associated paraplegia, paroxysmal atrial fibrillation on systemic anticoagulation, CKD stage 3, hypertension, diabetes mellitus, anemia, and several other comorbidities who is seen in follow-up for sepsis, right foot wound, and right sided pleural effusion. He says he is feeling not the best today. His main complaint is shortness of breath. he has trouble taking a deep breath and endorses conversational dyspnea and orthopnea. he denies any significant cough, though I did see him cough or clear his throat several times during my encounter. His second main complaint is soreness and heaviness in his bilateral lower extremities. He notes that the swelling is consistent with his baseline. He has neuropathy of his lower extremities and complains of tingling. He denies any significant pain of right foot wound and notes that it is significantly improved then what originally started. He denies nausea, vomiting, fever, or chills. Denies dizziness, lightheadedness, weakness. He reports adequate appetite and oral fluid intake. He is NPO this morning for his thoracentesis. He denies any issues with his suprapubic catheter. Denies suprapubic pain, red nurses swelling at this site of insertion, or changes in urine color or odor. denies headache or body aches. No chest pain or palpitations. Review of Systems Review of Systems: All systems reviewed & are unremarkable except as noted in HPI and below ROS unobtainable: Yes unobtainable due to medical condition ( unresponsiveness stuporous) Exam Narrative: Exam Narrative: laying in bed Const: General: cooperative, alert, ill appearing chronical
--- NOTE | 2021-04-09 15:58 | PM.PNNEP ---
Progress Note: A&P Assessment and Plan (1) MARJORIE (acute kidney injury): Code(s): N17.9 - Acute kidney failure, unspecified Status: Acute Assessment and Plan: etiology? perhaps a combination of relative hypotension + afib with RVR + infection no evidence of obstruction by imaging check urine electrolytes and urine eosinophils - however, since he has a chronic hernandez, interpretation maybe difficult maximize efforts to optimize renal perfusion HD today and likely tomorrow (2) Stage 3b chronic kidney disease: Code(s): N18.32 - Chronic kidney disease, stage 3b Status: Acute Assessment and Plan: baseline creatinine ~ 1.7 - 2.2mg/dl in the last few months presumably due to DM, vascular disease, hypertension/hypotension and possible recurrent infections(?) (3) Sepsis: Code(s): A41.9 - Sepsis, unspecified organism Status: Acute Assessment and Plan: as evidence by admission source?? follow culture data on broad spectrum antibiotics (4) Pleural effusion on right: Code(s): J90 - Pleural effusion, not elsewhere classified Status: Acute Assessment and Plan: s/p diagnostic/therapeutic thoracentesis follow-up on pleural fluid analysis (5) Atrial fibrillation with rapid ventricular response: Code(s): I48.91 - Unspecified atrial fibrillation Status: Acute Assessment and Plan: Cardiology follow with recommendations noted attempt rate control strategy (6) Wound of right foot: Code(s): S91.301A - Unspecified open wound, right foot, initial encounter Status: Acute Assessment and Plan: local wound care wound care following Will continue to follow. Subjective Date/time seen: 04/09/21 15:58 S/P temporary HD catheter placement earlier today and currently attempting to get dialysis (patient not cooperative with head positioning resulting in frequent alarms with dialysis treatment - seen on HD at 3:45PM); seems a bit more responsive than yesterday. Exam Narrative: Exam Narrative: General: ill appearing male Heart: normal S1 and S2; no rub Lungs: decreasd breath sounds at bases Abdomen: soft, nontender, nondistended, positive bowel sounds Extremities: no cyanosis or clubbing; 2 - 3+ edema Skin: warm and dry Objective Data Vital Signs Vital Signs: Vital Signs Temp Pulse Resp BP Pulse Ox 04/09/21 14:00 113 H 04/09/21 12:00 36.3 C L 106 H 28 H 161/58 H 95 04/09/21 10:00 101 H 04/09/21 09:00 97 04/09/21 08:00 36.4 C 110 H 22 H 114/69 94 04/09/21 05:54 98 04/09/21 04:00 36.4 C 100 20 110/70 99 04/09/21 02:00 111 H 04/09/21 01:30 98 04/09/21 00:00 36.4 C 94 20 108/68 98 04/08/21 23:53 100 20 97 04/08/21 22:00 94 04/08/21 21:15 97 04/08/21 20:00 36.6 C 90 20 101/60 97 04/08/21 18:00 90 04/08/21 17:34 35.9 C L 113 H 21 H 94/52 L 96 04/08/21 16:00 99 Intake/Output Intake/Output: Intake & Output 04/06/21 04/07/21 04/08/21 04/09/21 23:59 23:59 23:59 23:59 Intake Total 569.6 1200 820 350 Output Total 100 2450 1450 1600 Balance 469.6 -1250 -630 -1250 Meds/Results Medications: Active Medications Generic Name Dose Route Start Last Admin Trade Name Freq PRN Reason Stop Dose Admin Acetaminophen 1,000 mg 04/06/21 23:09 Acetaminophen 500 Mg Tablet PO Q6H PRN MILD Pain or Fever Hydrocodone Bitart/Acetaminophen 1 tab 04/06/21 14:29 04/07/21 04:46 Hydrocodone/Acetaminophen (*Crx) 5-325 Mg Tablet PO 1 tab Q4H PRN Administration Pain Rated 4-6 Amiodarone HCl 400 mg 04/07/21 10:05 04/09/21 12:35 Amiodarone Hcl 200 Mg Tablet PO Not Given BIDWM JAREN Baclofen 10 mg 04/06/21 23:55 04/09/21 13:51 Baclofen 10 Mg Tablet PO Not Given Q8HR JAREN Collagenase 1 applic 04/07/21 09:00 04/09/21 08:58 Collagenase Oint
[2021-04-09 16:37] LABS: Basophils Absolute Auto 0.1 K/mm3 (0.0-0.1); Basophils Percent Auto 0.3 % (0.2-1.2); Eosinophils Percent Auto 0.1 % (0-4.4); Hematocrit 28.2 % (42.0-52.0); Hemoglobin 9.1 g/dL (14.0-18.0); Immature Granulocyte Absolute 0.18 K/mm3 (0.00-0.031); Lymphocytes Absolute Auto 0.64 K/mm3 (0.9-3.2); Lymphocytes Percent Auto 3.6 % (18.3-44.2); Mean Corpuscular HGB Conc 32.3 g/dl (32-36); Mean Corpuscular Hemoglobin 27.5 pg (26-34); Mean Corpuscular Volume 85.2 fl (80-100); Mean Platelet Volume 10.6 fl (7.4-10.4); Monocytes Absolute Auto 0.5 K/mm3 (0.1-0.6); Monocytes Percent Auto 2.8 % (2.6-8.5); Neutrophils Absolute Auto 16.3 K/mm3 (1.3-6.7); Neutrophils Percent Auto 92.2 % (45.5-73.1); Platelet Count Result 373 k/mm3 (150-375); Red Blood Count 3.31 M/mm3 (4.6-6.20); Red Cell Distribution Width 16.4 % (11.5-14.5); White Blood Count 17.7 K/mm3 (4.5-10.0)
[2021-04-09 16:48] LABS: Anion Gap 13 mmol/L (8-16); Blood Urea Nitrogen 100 mg/dL (9-20); Calcium 8.1 mg/dL (8.4-10.2); Carbon Dioxide 20 mmol/L (22-30); Chloride 103 mmol/L (98-107); Estimated CRCL calculation 22 ml/min; Estimated Glomerular Filt Rate 13; Glucose 108 mg/dL (75-110); Potassium 3.6 mmol/L (3.4-5.0); Sodium 136 mmol/L (137-145)
[2021-04-09 16:54] LABS: Ovalocytes 1+ (NORMAL); Platelet Estimate Adequate (Adequate)
[2021-04-09 17:54] LABS: Hepatitis B Surface Antigen Negative (Negative)
[2021-04-09 18:12] LABS: Hepatitis B Surface Anti Res Negative
[2021-04-09 20:46] LABS: Glucose Point of Care 106 mg/dl (65-105)
[2021-04-09 21:13] LABS: Basophils Percent Auto 0.2 % (0.2-1.2); Hematocrit 29.4 % (42.0-52.0); Hemoglobin 9.9 g/dL (14.0-18.0); Immature Granulocyte Percent A 0.8 % (0-0.5); Lymphocytes Percent Auto 2.7 % (18.3-44.2); Mean Corpuscular HGB Conc 33.7 g/dl (32-36); Mean Corpuscular Hemoglobin 28.2 pg (26-34); Mean Corpuscular Volume 83.8 fl (80-100); Mean Platelet Volume 10.3 fl (7.4-10.4); Monocytes Absolute Auto 0.9 K/mm3 (0.1-0.6); Monocytes Percent Auto 3.5 % (2.6-8.5); Neutrophils Absolute Auto 24.1 K/mm3 (1.3-6.7); Neutrophils Percent Auto 92.8 % (45.5-73.1); Platelet Count Result 401 k/mm3 (150-375); Red Blood Count 3.51 M/mm3 (4.6-6.20); Red Cell Distribution Width 16.4 % (11.5-14.5); White Blood Count 25.9 K/mm3 (4.5-10.0)
[2021-04-09 21:24] LABS: Lactic Acid Reflex 1.1 mmol/L (0.7-2.1)
[2021-04-09 21:30] LABS: Platelet Estimate Increased (Adequate); Target Cells 1+ (NORMAL)
[2021-04-09 21:35] LABS: Alanine Aminotransferase 10 U/L (4-50); Albumin Level 2.8 g/dL (3.5-5.1); Alkaline Phosphatase 182 U/L (38-126); Anion Gap 12 mmol/L (8-16); Aspartate Amino Transferase 21 U/L (17-59); Bilirubin,Total 0.8 mg/dL (0.2-1.3); Blood Urea Nitrogen 66 mg/dL (9-20); Calcium 8.2 mg/dL (8.4-10.2); Carbon Dioxide 22 mmol/L (22-30); Chloride 103 mmol/L (98-107); Estimated CRCL calculation 30 ml/min; Estimated Glomerular Filt Rate 18; Glucose 109 mg/dL (75-110); Potassium 3.4 mmol/L (3.4-5.0); Sodium 137 mmol/L (137-145)
--- NOTE | 2021-04-09 21:45 | PM.EVENT ---
Event Note Event Note Event Note: 04/09/2021 21:10 I was notified by the nursing staff that they were concerned about the patient's condition. The patient was being treated for atrial fibrillation, empyema and acute on chronic renal failure. The patient cultures from thoracentesis on 04/07/2021 came back positive for Pseudomonas aeruginosa today. The patient has been on broad-spectrum antibiotic coverage with Primaxin and vancomycin. On presentation the hospital the patient was alert and oriented x4. Over the last 2 days the patient has been encephalopathic. Likely combination of the patient's acute on chronic renal failure and underlying empyema. Patient was started on hemodialysis 04/09/2021. Nursing staff states they think he is a little bit more awake but not answering questions appropriately. The patient has not been taking his oral medications due to his encephalopathy. He is usually on digoxin at home for his AFib but has not been able take it due to his encephalopathy. The patient had been treated initially with Cardizem on admission but his blood pressure dropped with the Cardizem any was switched to amiodarone. He has not been able to take the p.o. amiodarone again due to encephalopathy. He has been receiving pushes of Lopressor IV which seemed to be helping his heart rate until this evening. This evening the notify me that his heart rate was in the 150s. An order was placed for amiodarone bolus and amiodarone drip per protocol. Stat labs were obtained with repeat CBC demonstrating worsening leukocytosis. Lactic acid remained normal. The patient's BUN and creatinine has improved as anticipated after hemodialysis. GENERAL: Acutely ill-appearing, elderly, obese, generalized anasarca HEENT: edentulous, head is normocephalic atraumatic, pupils are equal and reactive CARDIOVASCULAR: irregularly irregular tachycardic, 2+ right radial pulse RESPIRATORY: course crackles throughout left greater than right, mild tachypnea, shallow respirations ABDOMEN: distended, nontender, positive bowel sounds INTEGUMENT: generalized pallor, wound to right heel NEUROLOGIC: somnolent, patient opens his eyes to verbal stimuli, upper extremities equally but generalized weakness, known paraplegia PSYCHIATRIC: confused, further assessment limited EXTREMITIES: generalized anasarca : suprapubic catheter in place draining approximately 600 mL urine 1. Empyema-- although the patient is on antibiotics ultimately we are not going to improve the patient's clinical condition without drainage of his empyema. The patient would benefit at least from chest tube. However we do not have CT surgery for more aggressive intervention of empyema. The patient is a DNR. I discussed the options of hospice verses transfer for evaluation by CT surgery. The family would like transfer for evaluation for further care. They are okay with the patient being intubated if needed for surgical procedure. They stated that if the patient did not improve after surgical procedure they would not want the patient to remain on a ventilator for long-term. In this setting I contacted [facility] transfer line and talked to Dr. Medrano from CT surgery. He agreed to consult on the patient. He recommended the patient be admitted to medical ICU given his multiple active conditions. I talked to Dr. Arora. Who accepted the patient in transfer but there are no ICU beds available. The patient is on a waiting list for the medical ICU. The surgeon requested the patient be intubated for airway protection. However the patient is satting 100% on room air with a respiratory rate between 22 and 28. they were concerned with the patient's decreased level of consciousness they could not protect his airway. The patient is actually responding more to nursing staff as the night goes on. I discussed the patient's case with the Dr. Rust (principal technical specialist) and he agreed that it would be premature to intubate the patient at this time. The
[2021-04-09] MEDS: AMIODARONE 150 MG/D5W 100 ML 150 MG/100 ML BAG 600 MG IV CONT (22:08)
[2021-04-09] MEDS: AMIODARONE 360 MG/D5W 200 ML 360 MG/200 ML BAG 33.33 MG IV CONT (22:09)
[2021-04-09 22:47] LABS: Albumin Pleural Fluid 1.4 g/dL
[2021-04-10] VITALS (30 sets, daily range): BP systolic 96–153; BP diastolic 68–88; PULSE 90–137; RESP 15–29; TEMP 36–37.1; O2SAT 94–100
--- NOTE | 2021-04-10 00:52 | PC.NURSE ---
This patient, Teddy Bundy, was received from [[id number]] on 04/10/21 at 00. Patient/family oriented to unit policies and routines. Belongings transferred with patient.
--- NOTE | 2021-04-10 01:34 | PC.NURSE ---
0030 04/10/21 pt not alert or oriented, will only answer no to some questions. Fidgety in bed. Lungs coarse with audible secretions upper airway. Pt physically fights attempts to suction and refuses oral care. Vee shaved in case of intubation. Spoke with Dr Morrell who spoke with family several times and family does not want heart resuscitated but is agreeable to intubation for procedure.
[2021-04-10 02:12] LABS: Alveolar/Arterial O2 Gradient 44.4 mmHg; Base Excess ABG -2.6 mEq/l (+/-2.0); Carboxyhemoglobin 0.3 % THb (0-2.0); Fractional Inspired Oxygen 21 %; HCO3 ABG 21.2 mEq/l (22.0-26.0); Methemoglobin ABG 0.3 %THb (0-1.5); Oxygen Content ABG 13.8 %vol (16.0-22.0); Oxygen Saturation ABG 93.6 % (95.0-100.0); Oxyhemoglobin 91.5 % THb (90.0-100.0); PCO2 ABG 33.2 mmHg (35.0-45.0); PO2 ABG 65.6 mmHg (80.0-100.0); PO2 FiO2 Ratio Arterial Blood 3.12 %; Reduced Hemoglobin 7.9 %THb (0-5.0); Total Hemoglobin 10.7 g/dL (12.0-18.0); pH ABG 7.424 (7.350-7.450)
[2021-04-10 02:13] LABS: Site Drawn LEFT BRACHIAL
[2021-04-10 02:14] LABS: Device ROOM AIR
[2021-04-10] MEDS: PROMETHAZINE HCL 25 MG/ML AMPUL 12.5 MG IV PUSH ×2 (03:35→13:12)
[2021-04-10 05:51] LABS: Albumin Level 2.5 g/dL (3.5-5.1); Anion Gap 13 mmol/L (8-16); Blood Urea Nitrogen 65 mg/dL (9-20); Carbon Dioxide 22 mmol/L (22-30); Chloride 101 mmol/L (98-107); Estimated CRCL calculation 26 ml/min; Estimated Glomerular Filt Rate 16; Glucose 181 mg/dL (75-110); Phosphorus 4.9 mg/dL (2.5-4.5); Potassium 3.2 mmol/L (3.4-5.0); Sodium 136 mmol/L (137-145)
--- NOTE | 2021-04-10 08:37 | WPDCNINT ---
Assessment and Plan Assessment and plan (1) Empyema: Code(s): J86.9 - Pyothorax without fistula Status: Acute Assessment and Plan: patient had a large right pleural effusion with collapse of the lung. He is S/p Thoracentesis On 04/07 and the fluid was suggestive of empyema cultures are growing Pseudomonas On Imipenem and Vanc which I will continue Blood cx negative Patient needs drainage with a chest tube but may also need VATS. since he has been accepted at [facility] CT surgery I will hold on consulting general surgery here for chest tube placement at this time since patient is otherwise hemodynamically stable and not on any pressors and has been on antibiotics for multiple days now. obviously if transfer is delayed or patient becomes hemodynamically unstable, will have to proceed with chest tube drainage here at [facility] (2) Sepsis: Code(s): A41.9 - Sepsis, unspecified organism Status: Acute Assessment and Plan: secondary to empyema and pneumonia antibiotics as per above not in a IV fluids as patient is overall volume overloaded now not on any pressors (3) Acute diastolic (congestive) heart failure: Code(s): I50.31 - Acute diastolic (congestive) heart failure Status: Acute Assessment and Plan: dialysis per Nephrology remove more fluids Strict I/O's daily Daily weights Follow cardiology recs (4) Altered mental status: Code(s): R41.82 - Altered mental status, unspecified Status: Acute Assessment and Plan: head CT was negative appears to have toxic metabolic encephalopathy DC Baclofen and Neurontin normal TSH and ammonia (5) Acute on chronic renal failure: Code(s): N17.9 - Acute kidney failure, unspecified; N18.9 - Chronic kidney disease, unspecified Status: Acute Assessment and Plan: status post temporary dialysis catheter placement and initiation of hemodialysis replace low potassium (6) Type 2 diabetes mellitus: Code(s): E11.9 - Type 2 diabetes mellitus without complications Status: Acute Assessment and Plan: SSI (7) Hypertension: Code(s): I10 - Essential (primary) hypertension Status: Acute Assessment and Plan: p.r.n. labetalol (8) Paroxysmal atrial fibrillation: Code(s): I48.0 - Paroxysmal atrial fibrillation Status: Acute Assessment and Plan: IV amiodarone infusion start aspirin hold therapeutic anticoagulation as patient will likely be needing surgical procedure Additional Plan DVT prophylaxis - Lovenox subcu Code Status - patient is DNR Total Critical Care Time - 40 minutes Due to a high probability of clinically significant, life threatening deterioration, the patient required my highest level of preparedness to intervene emergently and I personally spent this critical care time directly and personally managing the patient. This critical care time included obtaining a history; examining the patient; pulse oximetry; ordering and review of studies; arranging urgent treatment with development of a management plan; evaluation of patient's response to treatment; frequent reassessment; and discussions with other providers. It was exclusive of separately billable procedures and treating other patients and teaching time. 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 patient has possible history of multiple medical problems to include history of osteomyelitis of the spine with resultant paraplegia, paroxysmal atrial fibrillation on long-term anticoagulation, chronic kidney disease stage 3, hypertension, diabetes, hyperlipidemia, and anemia. He was hospitalized at [facility] in
--- NOTE | 2021-04-10 08:55 | PM.PNCARD ---
Progress Note: A&P Assessment and Plan (1) Atrial fibrillation: Code(s): I48.91 - Unspecified atrial fibrillation Status: Acute Assessment and Plan: 66 y/o with h/o paraplegia,osteomyelitis, atrial fibrillation, CKD, and HLD who presented with generalized weakness, MARJORIE on CKD, recurernt right pleural effusion and A fib with RVR Appears his BP runs low at baseline and he is on Midodinre for that. willl avoid BB or CCB Will hold Dig due to MARJORIE. Cr 5.7 from baseline of 2 Started Amiodarone drip fo rate control Start PO amiodarone when mental status better and able to swallow. Consider feeding tube Eliquis on hold for dialysis access and possible need for intervention on empyema (2) Diastolic congestive heart failure: Code(s): I50.30 - Unspecified diastolic (congestive) heart failure Status: Acute Assessment and Plan: 2D revealed normal LV function, no significant valve disease, mild pulmonary HTN Now requiring dialysis. Volume removal with dialysis per nephrology (3) Sepsis: Code(s): A41.9 - Sepsis, unspecified organism Status: Acute Assessment and Plan: Abx per primary team. Plan to transfer to [place] (4) Acute renal failure: Code(s): N17.9 - Acute kidney failure, unspecified Status: Acute Assessment and Plan: Started on dialysis this admission Additional Plan Thank you for allowing me to participate in this patient's care, I will be following up with you. Please do not hesitate to call me for any other inquiry Subjective Date/time seen: 04/10/21 08:55 He was transferred to ICU overnight with ongoing mental status changes and A fib with RVR. Heart rate better on Amiodarone drip Review of Systems Review of Systems: ROS unobtainable: Yes unobtainable due to medical condition Respiratory: Respiratory: Reports as per HPI Endocrine: Endocrine: Reports fatigue Exam Narrative: Exam Narrative: Lethargic but more awake compared to yesterday exam Neck is supple , JVD Noted, no carotid bruit Chest: decreased breathing sound noted with significant crackles Cardiovascular: irregularly irregular rhythm with significant tachycardia noted, 2/6 systolic murmur noted left sternal border Abdomen: Soft nontender bowel sounds positive Extremities: +++ edema noted bilaterally Objective Data Vital Signs Vital Signs: Vital Signs - 24 hr 04/09/21 09:00 07/02/21 10:00 04/09/21 12:00 Temperature 36.3 C L Pulse Rate 101 H 106 H Respiratory Rate 28 H Blood Pressure 161/58 H Pulse Oximetry 97 95 04/09/21 14:00 04/09/21 15:08 04/09/21 16:00 Temperature 36.7 C 36.6 C Pulse Rate 113 H 113 H 94 Respiratory Rate 20 24 H Blood Pressure 146/84 H 123/46 L Pulse Oximetry 0 L 97 04/09/21 16:15 04/09/21 16:30 04/09/21 16:45 Temperature Pulse Rate 66 94 92 Respiratory Rate Blood Pressure 135/73 143/56 H 140/60 Pulse Oximetry 04/09/21 17:00 04/09/21 17:15 04/09/21 17:30 Temperature Pulse Rate 92 103 H 82 Respiratory Rate Blood Pressure 131/78 152/72 H 162/55 H Pulse Oximetry 04/09/21 17:45 04/09/21 18:00 04/09/21 18:15 Temperature Pulse Rate 130 H 100 100 Respiratory Rate Blood Pressure 146/87 H 140/82 163/47 H Pulse Oximetry 04/09/21 18:30 04/09/21 18:45 04/09/21 19:00 Temperature Pulse Rate 91 108 H 92 Respiratory Rate Blood Pressure 154/58 H 120/67 130/74 Pulse Oximetry 04/09/21 19:11 04/09/21 20:00 04/09/21 20:26 Temperature 36.7 C 36.6 C Pulse Rate 84 94 145 H Respiratory Rate 20 24 H Blood Pressure 126/74 123/46 L Pulse Oximetry 97 04/09/21 22:00 04/09/21 22:08 04/09/21 22:09 Temperature Pulse Rate 133 H 156 H 156 H Respiratory Rate Blood Pressure Pulse Oximetry 04/10/21 00:00 04/10/21 00:15 04/10/21 02:30 Temperature 37.1 C Pulse Rate 110 H 111 H 104 H Respiratory Rate 28 H 16 Blood Pressure 145/87 H 11
[2021-04-10] MEDS: POTASSIUM CHLORIDE 20 MEQ PACKET (FOR LIQUID) 40 MEQ PO (09:12)
[2021-04-10] MEDS: TOLNAFTATE 1% POWDER 45 GM BTL 1 APPLIC TOPICAL ×2 (09:14→18:00)
[2021-04-10] MEDS: ENOXAPARIN 30 MG/0.3 ML SYRINGE SUB-Q (09:22)
[2021-04-10 09:25] LABS: Glucose Point of Care 178 mg/dl (65-105)
[2021-04-10] MEDS: COLLAGENASE OINT 30 GM TUBE 1 APPLIC TOPICAL (10:30)
[2021-04-10] MEDS: GENTAMICIN SULFATE 0.1% OINT 15 GM TUBE 1 APPLIC TOPICAL (10:30)
[2021-04-10] MEDS: DIGOXIN INJ 250 MCG/ML 2 ML AMP (*BKC) 125 MCG IV PUSH (11:34)
[2021-04-10 11:55] LABS: Glucose Point of Care 153 mg/dl (65-105)
--- NOTE | 2021-04-10 12:22 | P.PNNP_ITS ---
Progress Note: A&P Assessment and Plan (1) MARJORIE (acute kidney injury): Code(s): N17.9 - Acute kidney failure, unspecified Status: Acute Assessment and Plan: * etiology? * perhaps a combination of relative hypotension + afib with RVR + infection leading to ATN * no evidence of obstruction by imaging * checking urine electrolytes and urine eosinophils - however, since he has a chronic hernandez, interpretation maybe difficult * maximize efforts to optimize renal perfusion * HD today if remains hospitalized here (2) Stage 3b chronic kidney disease: Code(s): N18.32 - Chronic kidney disease, stage 3b Status: Acute Assessment and Plan: * baseline creatinine ~ 1.7 - 2.2mg/dl in the last few months * presumably due to DM, vascular disease, hypertension/hypotension and possible recurrent infections(?) (3) Sepsis: Code(s): A41.9 - Sepsis, unspecified organism Status: Acute Assessment and Plan: * as evidence by admission * source?? * follow culture data * on broad spectrum antibiotics (4) Pleural effusion on right: Code(s): J90 - Pleural effusion, not elsewhere classified Status: Acute Assessment and Plan: * s/p diagnostic/therapeutic thoracentesis * pleural fulid cultures growing Pseudomonas * likely needs chest tube and possible further intervention * transferring to [facility] for these interventions (5) Atrial fibrillation with rapid ventricular response: Code(s): I48.91 - Unspecified atrial fibrillation Status: Acute Assessment and Plan: * Cardiology follow with recommendations noted * attempt rate control strategy (6) Wound of right foot: Code(s): S91.301A - Unspecified open wound, right foot, initial encounter Status: Acute Assessment and Plan: * local wound care * wound care following Long and extensive discussion (> 20 minutes) with patient and daughter regarding plan of care and interventions to be done including likely dialysis later this afternoon assuming he is not transferred before then. Discussed case with Dr. Rust as well. Will continue to follow. Subjective Date/time seen: 04/10/21 12:22 Moved to ICU for closer monitoring -- awaiting bed for transfer to [place] to address his empyema; mental status seems to be doing better at this time as well; discussed case with daughter at bedside. Exam Narrative: Exam Narrative: General: ill appearing male Heart: normal S1 and S2; no rub Lungs: decreasd breath sounds at bases Abdomen: soft, nontender, nondistended, positive bowel sounds Extremities: no cyanosis or clubbing; 2 - 3+ edema Skin: warm and intact Objective Data Vital Signs Vital Signs: Vital Signs Temp Pulse Resp BP Pulse Ox 04/10/21 11:34 100 04/10/21 08:00 36.4 C 123 H 18 142/77 H 99 04/10/21 06:00 124 H 23 H 128/82 100 04/10/21 04:00 36.7 C 115 H 15 118/69 100 04/10/21 02:30 104 H 16 117/72 97 04/10/21 00:15 111 H 04/10/21 00:00 37.1 C 110 H 28 H 145/87 H 95 04/09/21 22:09 156 H 04/09/21 22:08 156 H 04/09/21 22:00 133 H 04/09/21 20:26 145 H 04/09/21 20:00 36.6 C 94 24 H 123/46 L 97 04/09/21 19:11 36.7 C 84 20 126/74 04/09/21 19:00 92 130/74 04/09/21 18:45 108 H 120/67
--- NOTE | 2021-04-10 12:22 | PM.PNNEP ---
Progress Note: A&P Assessment and Plan (1) MARJORIE (acute kidney injury): Code(s): N17.9 - Acute kidney failure, unspecified Status: Acute Assessment and Plan: etiology? perhaps a combination of relative hypotension + afib with RVR + infection leading to ATN no evidence of obstruction by imaging checking urine electrolytes and urine eosinophils - however, since he has a chronic hernandez, interpretation maybe difficult maximize efforts to optimize renal perfusion HD today if remains hospitalized here (2) Stage 3b chronic kidney disease: Code(s): N18.32 - Chronic kidney disease, stage 3b Status: Acute Assessment and Plan: baseline creatinine ~ 1.7 - 2.2mg/dl in the last few months presumably due to DM, vascular disease, hypertension/hypotension and possible recurrent infections(?) (3) Sepsis: Code(s): A41.9 - Sepsis, unspecified organism Status: Acute Assessment and Plan: as evidence by admission source?? follow culture data on broad spectrum antibiotics (4) Pleural effusion on right: Code(s): J90 - Pleural effusion, not elsewhere classified Status: Acute Assessment and Plan: s/p diagnostic/therapeutic thoracentesis pleural fulid cultures growing Pseudomonas likely needs chest tube and possible further intervention transferring to [facility] for these interventions (5) Atrial fibrillation with rapid ventricular response: Code(s): I48.91 - Unspecified atrial fibrillation Status: Acute Assessment and Plan: Cardiology follow with recommendations noted attempt rate control strategy (6) Wound of right foot: Code(s): S91.301A - Unspecified open wound, right foot, initial encounter Status: Acute Assessment and Plan: local wound care wound care following Long and extensive discussion (> 20 minutes) with patient and daughter regarding plan of care and interventions to be done including likely dialysis later this afternoon assuming he is not transferred before then. Discussed case with Dr. Rust as well. Will continue to follow. Subjective Date/time seen: 04/10/21 12:22 Moved to ICU for closer monitoring -- awaiting bed for transfer to [place] to address his empyema; mental status seems to be doing better at this time as well; discussed case with daughter at bedside. Exam Narrative: Exam Narrative: General: ill appearing male Heart: normal S1 and S2; no rub Lungs: decreasd breath sounds at bases Abdomen: soft, nontender, nondistended, positive bowel sounds Extremities: no cyanosis or clubbing; 2 - 3+ edema Skin: warm and intact Objective Data Vital Signs Vital Signs: Vital Signs Temp Pulse Resp BP Pulse Ox 04/10/21 11:34 100 04/10/21 08:00 36.4 C 123 H 18 142/77 H 99 04/10/21 06:00 124 H 23 H 128/82 100 04/10/21 04:00 36.7 C 115 H 15 118/69 100 04/10/21 02:30 104 H 16 117/72 97 04/10/21 00:15 111 H 04/10/21 00:00 37.1 C 110 H 28 H 145/87 H 95 04/09/21 22:09 156 H 04/09/21 22:08 156 H 04/09/21 22:00 133 H 04/09/21 20:26 145 H 04/09/21 20:00 36.6 C 94 24 H 123/46 L 97 04/09/21 19:11 36.7 C 84 20 126/74 04/09/21 19:00 92 130/74 04/09/21 18:45 108 H 120/67 04/09/21 18:30 91 154/58 H 04/09/21 18:15 100 163/47 H 04/09/21 18:00 100 140/82 04/09/21 17:45 130 H 146/87 H 04/09/21 17:30 82 162/55 H 04/09/21 17:15 103 H 152/72 H 04/09/21 17:00 92 131/78 04/09/21 16:45 92 140/60 04/09/21 16:30 94 143/56 H 04/09/21 16:15 66 135/73 04/09/21 16:00 36.6 C 94 24 H 123/46 L 97 04/09/21 15:08 36.7 C 113 H 20 146/84 H 0 L 04/09/21 14:00 113 H Intake/Output Intake/Output: Intake & Output 04/07/21 04/08/21 04/09/21 04/10/21 23:59 23:59 23:59 23:59 Intake Total 1200 820 420 100 Output Total 2450 1450
[2021-04-10] MEDS: MORPHINE SULFATE (*CRX) 2 MG/ML INJ IV PUSH (14:10)
[2021-04-10] MEDS: MIDODRINE HCL 10 MG TABLET PO (14:12)
[2021-04-10] MEDS: AMIODARONE 360 MG/D5W 200 ML 360 MG/200 ML BAG 16.67 MG IV CONT (15:37)
--- NOTE | 2021-04-10 15:39 | PM.IMPN ---
Progress Note: A&P Assessment and Plan (1) Empyema: Code(s): J86.9 - Pyothorax without fistula Status: Acute Assessment and Plan: S/p Thoracentesis Exudate On Imipenem and Vanc Blood cx negative Continue to monitor WILL BE TRANSFERRED FOR CHEST TUBE PLACEMENT (2) Acute diastolic (congestive) heart failure: Code(s): I50.31 - Acute diastolic (congestive) heart failure Status: Acute Assessment and Plan: PATIENT IS CURRENTLY UNDERGOING HEMODIALYSIS HAD FIRST TREATMENT JUST Follow cardiology recs appreciate cardiology note (3) Altered mental status: Code(s): R41.82 - Altered mental status, unspecified Status: Acute Assessment and Plan: OBTUNDED (4) Acute on chronic renal failure: Code(s): N17.9 - Acute kidney failure, unspecified; N18.9 - Chronic kidney disease, unspecified Status: Acute Assessment and Plan: status post temporary dialysis catheter placement appreciate surgery consult UNDERWENT 1ST HEMODIALYSIS TREATMENT YESTERDAY (5) Pleural effusion on right: Code(s): J90 - Pleural effusion, not elsewhere classified Status: Acute Assessment and Plan: status post thoracentesis studies consistent with exudate EMPYEMA GOING FOR CHEST TUBE PLACEMENT (6) Type 2 diabetes mellitus: Code(s): E11.9 - Type 2 diabetes mellitus without complications Status: Acute Assessment and Plan: blood sugars have been in the 90s continue to monitor poor p.o. intake (7) Hypertension: Code(s): I10 - Essential (primary) hypertension Status: Acute Assessment and Plan: CONTINUE TO MONITOR (8) Paroxysmal atrial fibrillation: Code(s): I48.0 - Paroxysmal atrial fibrillation Status: Acute Assessment and Plan: IV amiodarone continues telemetry continue to monitor Subjective Date/time seen: 04/10/21 15:39 Interval history: DATE OF SERVICE 04/10/2021: PATIENT'S OVERNIGHT EVENTS NOTED AWAITING TRANSFER TO [facility] FOR CHEST TUBE PLACEMENT date of service 04/09/2021: awake date of service 2020: unresponsive Date of service: 04/07/2021 Teddy Bundy is a 66-year-old male with a history of osteomyelitis of the spine with associated paraplegia, paroxysmal atrial fibrillation on systemic anticoagulation, CKD stage 3, hypertension, diabetes mellitus, anemia, and several other comorbidities who is seen in follow-up for sepsis, right foot wound, and right sided pleural effusion. He says he is feeling not the best today. His main complaint is shortness of breath. he has trouble taking a deep breath and endorses conversational dyspnea and orthopnea. he denies any significant cough, though I did see him cough or clear his throat several times during my encounter. His second main complaint is soreness and heaviness in his bilateral lower extremities. He notes that the swelling is consistent with his baseline. He has neuropathy of his lower extremities and complains of tingling. He denies any significant pain of right foot wound and notes that it is significantly improved then what originally started. He denies nausea, vomiting, fever, or chills. Denies dizziness, lightheadedness, weakness. He reports adequate appetite and oral fluid intake. He is NPO this morning for his thoracentesis. He denies any issues with his suprapubic catheter. Denies suprapubic pain, red nurses swelling at this site of insertion, or changes in urine color or odor. denies headache or body aches. No chest pain or palpitations. Review of Systems Review of Systems: All systems reviewed & are unremarkable except as noted in HPI and below ROS unobtainable: Yes unobtainable due to medical condition ( unresponsiveness stuporous) Exam Narrative: Exam Narrative: laying in bed Const: General: ill appearing chronically, patient obtunded and other ( stuporous) N
[2021-04-10 18:09] LABS: Glucose Point of Care 123 mg/dl (65-105)
[2021-04-10 22:02] LABS: Glucose Pleural Fluid <10 mg/dL; LDH Pleural Fluid 4808 U/L; Total Protein Pleural Fluid 3.8 g/dL
[2021-04-10 22:39] LABS: Glucose Point of Care 125 mg/dl (65-105)
[2021-04-10] MEDS: METOPROLOL TARTRATE INJ 5 MG/5 ML VIAL IV PUSH (22:40)
[2021-04-11] VITALS (7 sets, daily range): BP systolic 112–133; BP diastolic 66–78; PULSE 96–130; RESP 20–25; TEMP 36.4–36.8; O2SAT 94–98
[2021-04-11] MEDS: AMIODARONE 360 MG/D5W 200 ML 360 MG/200 ML BAG 16.67 MG IV CONT (02:26)
[2021-04-11] MEDS: PANTOPRAZOLE SODIUM IV 40 MG VIAL IV PUSH (02:27)
[2021-04-11] MEDS: METOPROLOL TARTRATE INJ 5 MG/5 ML VIAL IV PUSH (02:57)
[2021-04-13 12:57] LABS: Amylase, Pleural Fluid 15 U/L
[2021-04-13 16:39] LABS: Chloride Rand Ur 87 mmol/L (32-290); Chloride/Creatinine Rand Ur 580 (23-275); Creatinine Random Urine 15 mg/dL (20-320)
--- NOTE | 2021-04-30 18:43 | PM.DS ---
DS: Admitting Diagnosis Admitting Diagnosis (1) Sepsis: Code(s): A41.9 - Sepsis, unspecified organism Status: Acute Assessment and Plan: Sepsis present on admission and supported by tachycardia, leukocytosis, and acute on chronic kidney injury. Possible sources include urine, right foot wound, and pleural effusion. He has been started on empiric broad-spectrum antibiotics including vancomycin and imipenem which should cover any in all pathogens. Blood, urine, and right foot wound cultures are pending. I will ask the radiologist to drain his pleural effusion tomorrow and we will send that for culture as well. (2) Pleural effusion on right: Code(s): J90 - Pleural effusion, not elsewhere classified Status: Acute Assessment and Plan: Diagnostic thoracentesis tomorrow per IR. (3) Wound of right foot: Code(s): S91.301A - Unspecified open wound, right foot, initial encounter Status: Acute Assessment and Plan: X-ray does not show osteomyelitis. Continue antibiotics as detailed above. Wound nurse consulted though he may need some debridement. (4) Acute on chronic renal failure: Code(s): N17.9 - Acute kidney failure, unspecified; N18.9 - Chronic kidney disease, unspecified Status: Acute Assessment and Plan: Etiology is not entirely clear but May be related to recent antibiotics or ATN from sepsis. Patient has noticed a decrease in urine output although maintains that he has been eating and drinking as per usual. He has not had any vomiting or diarrhea. No evidence of hydronephrosis on imaging. Will avoid nephrotoxic agents in ask Nephrology to see him in consultation. Monitor strict I/Os. (5) Abnormal urinalysis: Code(s): R82.90 - Unspecified abnormal findings in urine Status: Acute Assessment and Plan: He has a suprapubic catheter and likely has chronically abnormal urine. Culture pending. (6) Atrial fibrillation with rapid ventricular response: Code(s): I48.91 - Unspecified atrial fibrillation Status: Acute Assessment and Plan: Rate has improved with Cardizem drip and digoxin. Apixaban on hold in anticipation of thoracentesis tomorrow. Dr. Mendez has been consulted his input is appreciated. Records requested from outside facility as he believes he had an echocardiogram done sometime recently. (7) Chronic anemia: Code(s): D64.9 - Anemia, unspecified Status: Acute Assessment and Plan: Monitor hemoglobin and hematocrit. (8) Hypertension: Code(s): I10 - Essential (primary) hypertension Status: Acute Assessment and Plan: Blood pressures were a bit soft on arrival but have improved since his rate has slowed. He has actually been having issues with orthostatic hypotension was started on midodrine at the outside facility and it looks like his antihypertensives were discontinued. Continue to monitor blood pressures closely. (9) Type 2 diabetes mellitus: Code(s): E11.9 - Type 2 diabetes mellitus without complications Status: Acute Assessment and Plan: Hold oral hypoglycemics. Check hemoglobin A1c. Initiate sliding scale insulin, Accu-Cheks, and hypoglycemic protocol. 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 DS: Discharge Diagnosis Discharge Diagnosis (1) Empyema: Code(s): J86.9 - Pyothorax without fistula Status: Acute Assessment and Plan: S/p Thoracentesis Exudate On Imipenem and Vanc Blood cx negative Continue to monitor WILL BE TRANSFERRED FOR CHEST TUBE PLACEMENT (2) Acute diastolic (congestive) heart failure: Code(s): I50.31 - Acute diastolic (congestive) heart failure Status: Acute Assessment and Plan: PATIENT IS CURRENTLY U
--- NOTE | 2021-04-30 18:50 | PM.TDS ---
Transfer Discharge Sum: Prov Provider Date of admission: 04/06/21 14:43 Primary care physician: Preet Begum MD Admitting clinician: Gideon Gutierrez MD Attending physician on admission: Gideon Gutierrez Consults: 04/06/21 Consult to Physician Routine Comment: EXCHANGE NOTIFIED OF CONSULT Consulting Provider: Néstor Mendez call center dispatcher/MD group to consult: [email or web address] Reason for consultation: afib rvr Has provider been notified: Yes Consult to Physician Routine Comment: EXCHANGE NOTIFIED OF CONSULT Consulting Provider: Avila Mast call center dispatcher/MD group to consult: silvia Reason for consultation: esrd Has provider been notified: Yes Wound/ET Consult Routine Reason for Consult:: -Open area to medial buttocks -Wounds to right lateral foot and heel- sees wound nurses at [facility]. Currently applying Santyl to both wounds on foot Wound/ET Consult Routine Reason for Consult:: right foot wound 04/08/21 Consult to Physician Routine Comment: Consulting Provider: Leif Castro Reason for consultation: placement of temporary dialysis catheter for dialysis Has provider been notified: No Attending physician on discharge: Mirian Chavarria V. Discharging clinician: Edie Morrell Anticipated date of transfer: 04/10/21 DS: Admitting Diagnosis Admitting Diagnosis (1) Sepsis: Code(s): A41.9 - Sepsis, unspecified organism Status: Acute Assessment and Plan: Sepsis present on admission and supported by tachycardia, leukocytosis, and acute on chronic kidney injury. Possible sources include urine, right foot wound, and pleural effusion. He has been started on empiric broad-spectrum antibiotics including vancomycin and imipenem which should cover any in all pathogens. Blood, urine, and right foot wound cultures are pending. I will ask the radiologist to drain his pleural effusion tomorrow and we will send that for culture as well. (2) Pleural effusion on right: Code(s): J90 - Pleural effusion, not elsewhere classified Status: Acute Assessment and Plan: Diagnostic thoracentesis tomorrow per IR. (3) Wound of right foot: Code(s): S91.301A - Unspecified open wound, right foot, initial encounter Status: Acute Assessment and Plan: X-ray does not show osteomyelitis. Continue antibiotics as detailed above. Wound nurse consulted though he may need some debridement. (4) Acute on chronic renal failure: Code(s): N17.9 - Acute kidney failure, unspecified; N18.9 - Chronic kidney disease, unspecified Status: Acute Assessment and Plan: Etiology is not entirely clear but May be related to recent antibiotics or ATN from sepsis. Patient has noticed a decrease in urine output although maintains that he has been eating and drinking as per usual. He has not had any vomiting or diarrhea. No evidence of hydronephrosis on imaging. Will avoid nephrotoxic agents in ask Nephrology to see him in consultation. Monitor strict I/Os. (5) Abnormal urinalysis: Code(s): R82.90 - Unspecified abnormal findings in urine Status: Acute Assessment and Plan: He has a suprapubic catheter and likely has chronically abnormal urine. Culture pending. (6) Atrial fibrillation with rapid ventricular response: Code(s): I48.91 - Unspecified atrial fibrillation Status: Acute Assessment and Plan: Rate has improved with Cardizem drip and digoxin. Apixaban on hold in anticipation of thoracentesis tomorrow. Dr. Mendez has been consulted his input is appreciated. Records requested from outside facility as he believes he had an echocardiogram done sometime recently. (7) Chronic anemia: Code(s): D64.9 - Anemia, unspecified Status: Acute Assessment and Plan: Monitor hemoglobin and hematocrit. (8) Hypertension: Code(s): I10 - Essential (primar
== END 2021-04-11 04:47 | disposition short-term general hospital (02) | DRG 871 ==
LOC: ANHED 11:50 → ANHIMU 14:48 → ANHICU 04-10 00:51
PROVIDERS: Internal Medicine; Internal Medicine Nephrology; Physician Assistant; Admitting Provider Internal Medicine; Emergency Provider Emergency Medicine; PCP Family Medicine; Visit Provider Physician Assistant
DX: A41.9 Sepsis, unspecified organism (principal); J86.9 Pyothorax without fistula; R65.21 Severe sepsis with septic shock; J18.9 Pneumonia, unspecified organism; I50.31 Acute diastolic (congestive) heart failure; G92 Toxic encephalopathy; N17.0 Acute kidney failure with tubular necrosis; J90 Pleural effusion, not elsewhere classified; J98.19 Other pulmonary collapse; I13.0 Hypertensive heart and chronic kidney disease with heart failure and stage 1 through stage 4 chronic kidney disease, or unspecified chronic kidney disease; G82.22 Paraplegia, incomplete; I48.0 Paroxysmal atrial fibrillation; E11.22 Type 2 diabetes mellitus with diabetic chronic kidney disease; E11.42 Type 2 diabetes mellitus with diabetic polyneuropathy; E78.5 Hyperlipidemia, unspecified; R82.90 Unspecified abnormal findings in urine; N18.32 Chronic kidney disease, stage 3b; D64.9 Anemia, unspecified; Z96.651 Presence of right artificial knee joint; S91.301A Unspecified open wound, right foot, initial encounter; X58.XXXA Exposure to other specified factors, initial encounter; E66.01 Morbid (severe) obesity due to excess calories; B96.5 Pseudomonas (aeruginosa) (mallei) (pseudomallei) as the cause of diseases classified elsewhere; Z68.33 Body mass index [BMI] 33.0-33.9, adult; Z99.3 Dependence on wheelchair; Z89.421 Acquired absence of other right toe(s); Z79.01 Long term (current) use of anticoagulants; Z98.1 Arthrodesis status
CPT/HCPCS: 32555; 36415; 36600; 70450; 71250; 73620; 74176; 76775; 80048; 80053; 80069; 80162; 80202; 81001; 81050; 82040; 82042; 82140; 82150; 82247; 82375; 82436; 82465; 82570; 82607; 82728; 82746; 82805; 82945; 82948; 83010; 83036; 83050; 83540; 83550; 83605; 83615; 83735; 83880; 83986; 84145; 84155; 84156; 84157; 84300; 84311; 84443; 84478; 85014; 85018; 85025; 85027; 85046; 85610; 85652; 85730; 85999; 86140; 86706; 87040; 87070; 87075; 87077; 87086; 87088; 87186; 87205; 87340; 88104; 88108; 88305; 89051; 93005; 93306; 96374; 96375; 99285; A9270; C1752; C9113; G0257; J0282; J0456; J0696; J0743; J1160; J1650; J1940; J2270; J2310; J2550; J3370; J3480

== ENCOUNTER 2021-05-21 11:07 | Outpatient (CLI) | payer BC, SELFPAY ==
[2021-05-21 11:36] LABS: Hematocrit 27.7 % (37.0-46.0); Hemoglobin 8.8 g/dL (12.4-15.3); Mean Corpuscular HGB Conc 31.8 g/dL (32.0-36.0); Mean Corpuscular Hemoglobin 29.6 pg (27.0-31.0); Mean Corpuscular Volume 93.3 fL (78.0-102.0); Mean Platelet Volume 10.9 fl (8.7-11.0); Platelet Count Result 186 K/mm3 (150-420); Red Blood Count 2.97 M/mm3 (4.70-6.10); Red Cell Distribution Width 15.3 % (11.6-14.4); White Blood Count 12.1 K/mm3 (4.8-10.8)
[2021-05-21 11:57] LABS: Alanine Aminotransferase 20 U/L (16-63); Albumin Level 1.3 g/dL (3.4-5.0); Alkaline Phosphatase 281 U/L (46-116); Anion Gap 18 mmol/L (8-16); Aspartate Amino Transferase 22 U/L (15-37); Bilirubin,Total 0.3 mg/dL (0.00-1.00); Blood Urea Nitrogen 102 mg/dL (7-18); Calcium 7.8 mg/dL (8.5-10.1); Carbon Dioxide 18 mmol/L (21-32); Chloride 106 mmol/L (98-108); Estimated Glomerular Filt Rate 9; Glucose 110 mg/dL (70-99); Osmolality Calculated 326 mOsm/kg (285-295); Potassium 3.4 mmol/L (3.5-5.1); Sodium 142 mmol/L (136-145); Total Protein 6.6 g/dL (6.4-8.2)
[2021-05-21 12:03] LABS: INR 1.5; Prothrombin Time 15.3 Seconds (9.50-12.10)
[2021-05-21 13:49] LABS: Band Neutrophils Percent 0 % (0-6); Eosinophils Absolute Manual 0.96 K/mm3 (0.02-0.5); Eosinophils Percent Manual 8 % (1-6); Lymphocytes Absolute Manual 0.72 K/mm3 (1.1-4.5); Lymphocytes Percent Manual 6 % (18-44); Monocytes Absolute Manual 1.08 K/mm3 (0.1-0.90); Monocytes Percent Manual 9 % (3-9); Neutrophils Absolute Manual 9.31 K/mm3 (1.3-6.7); Neutrophils Percent Manual 77 % (46-73); Platelet Estimate Adequate (Adequate); Total Cells Counted 100
== END 2021-05-21 11:08 | disposition home or self-care (01) ==
LOC: CHSLAB 11:21
PROVIDERS: PCP Family Medicine; Visit Provider Family Medicine
DX: I48.19 Other persistent atrial fibrillation (principal); I10 Essential (primary) hypertension
CPT/HCPCS: 36415; 80053; 85025; 85610

== ENCOUNTER 2021-05-25 10:51 | Outpatient (NON) | payer BC, SELFPAY ==
[2021-05-25 11:04] LABS: Basophils Absolute Auto 0.06 K/mm3 (0.00-0.10); Basophils Percent Auto 0.3 % (0.0-1.0); Eosinophils Absolute Auto 0.94 K/mm3 (0.02-0.50); Eosinophils Percent Auto 4.9 % (1.0-6.0); Hematocrit 25.8 % (37.0-46.0); Hemoglobin 8.4 g/dL (12.4-15.3); Immature Granulocyte Absolute 0.12 K/mm3 (0.00-0.00); Immature Granulocyte Percent A 0.6 % (0.0-0.0); Lymphocytes Absolute Auto 0.68 K/mm3 (1.10-4.50); Lymphocytes Percent Auto 3.5 % (18.0-42.0); Mean Corpuscular HGB Conc 32.6 g/dL (32.0-36.0); Mean Corpuscular Hemoglobin 29.2 pg (27.0-31.0); Mean Corpuscular Volume 89.6 fL (78.0-102.0); Mean Platelet Volume 11.6 fl (8.7-11.0); Monocytes Absolute Auto 0.83 K/mm3 (0.10-0.90); Monocytes Percent Auto 4.3 % (2.0-11.0); Neutrophils Absolute Auto 16.7 K/mm3 (1.7-7.2); Neutrophils Percent Auto 86.4 % (50.0-70.0); Platelet Count Result 188 K/mm3 (150-420); Red Blood Count 2.88 M/mm3 (4.70-6.10); Red Cell Distribution Width 14.8 % (11.6-14.4); White Blood Count 19.3 K/mm3 (4.8-10.8)
[2021-05-25 11:19] LABS: INR 1.6; Prothrombin Time 17.1 Seconds (9.50-12.10)
[2021-05-25 11:23] LABS: Alanine Aminotransferase 10 U/L (16-63); Albumin Level 1.2 g/dL (3.4-5.0); Alkaline Phosphatase 210 U/L (46-116); Anion Gap 18 mmol/L (8-16); Aspartate Amino Transferase 13 U/L (15-37); Bilirubin,Total 0.3 mg/dL (0.00-1.00); Blood Urea Nitrogen 117 mg/dL (7-18); Calcium 7.2 mg/dL (8.5-10.1); Carbon Dioxide 19 mmol/L (21-32); Chloride 105 mmol/L (98-108); Estimated Glomerular Filt Rate 8; Glucose 84 mg/dL (70-99); Osmolality Calculated 330 mOsm/kg (285-295); Potassium 3.1 mmol/L (3.5-5.1); Sodium 142 mmol/L (136-145); Total Protein 6.3 g/dL (6.4-8.2)
== END 2021-05-25 10:52 | disposition home or self-care (01) ==
LOC: CHSLAB 10:52
PROVIDERS: Visit Provider Family Medicine
DX: J86.9 Pyothorax without fistula (principal); B96.5 Pseudomonas (aeruginosa) (mallei) (pseudomallei) as the cause of diseases classified elsewhere; I48.91 Unspecified atrial fibrillation; Z79.2 Long term (current) use of antibiotics
CPT/HCPCS: 36415; 80053; 85025; 85610

== ENCOUNTER 2021-05-26 09:40 | Outpatient (NON) | payer BC, SELFPAY ==
[2021-05-26 10:29] LABS: Anion Gap 19 mmol/L (8-16); Blood Urea Nitrogen 120 mg/dL (7-18); Carbon Dioxide 18 mmol/L (21-32); Chloride 105 mmol/L (98-108); Estimated Glomerular Filt Rate 8; Glucose 102 mg/dL (70-99); Osmolality Calculated 332 mOsm/kg (285-295); Potassium 3.1 mmol/L (3.5-5.1); Sodium 142 mmol/L (136-145)
== END 2021-05-26 09:41 | disposition home or self-care (01) ==
LOC: CHSLAB 09:42
PROVIDERS: Visit Provider Family Medicine
DX: N18.9 Chronic kidney disease, unspecified (principal); R79.9 Abnormal finding of blood chemistry, unspecified
CPT/HCPCS: 36415; 80048

== ENCOUNTER 2021-05-28 10:53 | Outpatient (NON) | payer BC, SELFPAY ==
[2021-05-28 11:11] LABS: Add Urine Microscopic? YES; Appearance Urine Sl Cloudy (Clear); Basophils Absolute Auto 0.04 K/mm3 (0.00-0.10); Basophils Percent Auto 0.3 % (0.0-1.0); Bilirubin Urine Negative (Negative); Blood Urine 3+ (Negative); Color Urine Light Yellow (Yellow); Eosinophils Absolute Auto 1.01 K/mm3 (0.02-0.50); Eosinophils Percent Auto 7.9 % (1.0-6.0); Glucose Urine UA Negative (Negative); Hematocrit 23.5 % (37.0-46.0); Hemoglobin 7.8 g/dL (12.4-15.3); Immature Granulocyte Absolute 0.07 K/mm3 (0.00-0.00); Immature Granulocyte Percent A 0.5 % (0.0-0.0); Ketones Urine Negative (Negative); Leukocyte Esterase Ur 3+ (Negative); Lymphocytes Absolute Auto 0.71 K/mm3 (1.10-4.50); Lymphocytes Percent Auto 5.5 % (18.0-42.0); Mean Corpuscular HGB Conc 33.2 g/dL (32.0-36.0); Mean Corpuscular Hemoglobin 29.2 pg (27.0-31.0); Mean Platelet Volume 11.4 fl (8.7-11.0); Monocytes Absolute Auto 0.67 K/mm3 (0.10-0.90); Monocytes Percent Auto 5.2 % (2.0-11.0); Neutrophils Absolute Auto 10.4 K/mm3 (1.7-7.2); Neutrophils Percent Auto 80.6 % (50.0-70.0); Nitrate Urine Negative (Negative); Platelet Count Result 175 K/mm3 (150-420); Protein Urine 1+ (Negative); Red Blood Count 2.67 M/mm3 (4.70-6.10); Urobilinogen Urine 0.2 mg/dL (0.2-1.0); White Blood Count 12.9 K/mm3 (4.8-10.8)
[2021-05-28 11:19] LABS: Bacteria Urine 1+ /hpf; Budding Yeast Urine Present /hpf; RBC Urine 21-50 /hpf (0-2); WBC Urine 51-75 /hpf (0-3)
[2021-05-28 12:19] LABS: Creatinine Urine 55.78 mg/dL (40-278)
[2021-05-28 12:24] LABS: MALB Creatinine Ratio 188.9 mg/g (0-30); Microalbumin Urine Random 105.4 mg/L
[2021-05-28 13:01] LABS: Anion Gap 19 mmol/L (8-16); Blood Urea Nitrogen 130 mg/dL (7-18); Carbon Dioxide 17 mmol/L (21-32); Chloride 107 mmol/L (98-108); Estimated Glomerular Filt Rate 7; Glucose 72 mg/dL (70-99); Osmolality Calculated 336 mOsm/kg (285-295); Potassium 3.2 mmol/L (3.5-5.1); Sodium 143 mmol/L (136-145)
== END 2021-05-28 10:54 | disposition home or self-care (01) ==
LOC: CHSLAB 10:56
PROVIDERS: Visit Provider Family Medicine
DX: N18.9 Chronic kidney disease, unspecified (principal); D69.6 Thrombocytopenia, unspecified; B96.5 Pseudomonas (aeruginosa) (mallei) (pseudomallei) as the cause of diseases classified elsewhere
CPT/HCPCS: 36415; 80048; 81001; 82043; 85025

== ENCOUNTER 2021-06-01 12:48 | Outpatient (NON) | payer BC, SELFPAY ==
[2021-06-01 13:09] LABS: Basophils Absolute Auto 0.03 K/mm3 (0.00-0.10); Basophils Percent Auto 0.2 % (0.0-1.0); Eosinophils Absolute Auto 0.79 K/mm3 (0.02-0.50); Hematocrit 23.5 % (37.0-46.0); Hemoglobin 7.7 g/dL (12.4-15.3); Immature Granulocyte Absolute 0.12 K/mm3 (0.00-0.00); Immature Granulocyte Percent A 0.9 % (0.0-0.0); Lymphocytes Absolute Auto 0.96 K/mm3 (1.10-4.50); Lymphocytes Percent Auto 7.3 % (18.0-42.0); Mean Corpuscular HGB Conc 32.8 g/dL (32.0-36.0); Mean Corpuscular Hemoglobin 28.6 pg (27.0-31.0); Mean Corpuscular Volume 87.4 fL (78.0-102.0); Mean Platelet Volume 11.4 fl (8.7-11.0); Monocytes Absolute Auto 0.59 K/mm3 (0.10-0.90); Monocytes Percent Auto 4.5 % (2.0-11.0); Neutrophils Absolute Auto 10.7 K/mm3 (1.7-7.2); Neutrophils Percent Auto 81.1 % (50.0-70.0); Platelet Count Result 194 K/mm3 (150-420); Red Blood Count 2.69 M/mm3 (4.70-6.10); Red Cell Distribution Width 15.2 % (11.6-14.4); White Blood Count 13.2 K/mm3 (4.8-10.8)
[2021-06-01 13:25] LABS: INR 1.7; Prothrombin Time 17.2 Seconds (9.50-12.10)
[2021-06-01 13:37] LABS: Alanine Aminotransferase 9 U/L (16-63); Albumin Level 1.1 g/dL (3.4-5.0); Alkaline Phosphatase 262 U/L (46-116); Anion Gap 20 mmol/L (8-16); Aspartate Amino Transferase 13 U/L (15-37); Bilirubin,Total 0.3 mg/dL (0.00-1.00); Blood Urea Nitrogen 145 mg/dL (7-18); Calcium 6.8 mg/dL (8.5-10.1); Carbon Dioxide 16 mmol/L (21-32); Chloride 106 mmol/L (98-108); Estimated Glomerular Filt Rate 6; Glucose 58 mg/dL (70-99); Osmolality Calculated 339 mOsm/kg (285-295); Potassium 3.6 mmol/L (3.5-5.1); Sodium 142 mmol/L (136-145); Total Protein 5.9 g/dL (6.4-8.2)
== END 2021-06-01 12:49 | disposition home or self-care (01) ==
PROVIDERS: PCP Family Medicine
DX: D69.6 Thrombocytopenia, unspecified (principal); D63.1 Anemia in chronic kidney disease; J86.9 Pyothorax without fistula; B96.5 Pseudomonas (aeruginosa) (mallei) (pseudomallei) as the cause of diseases classified elsewhere; J94.8 Other specified pleural conditions; I48.91 Unspecified atrial fibrillation
CPT/HCPCS: 80053; 85025; 85610

== ENCOUNTER 2021-06-02 11:25 | Outpatient (NON) | payer BC, SELFPAY ==
[2021-06-02 12:21] LABS: Anion Gap 20 mmol/L (8-16); Calcium 6.4 mg/dL (8.5-10.1); Carbon Dioxide 17 mmol/L (21-32); Chloride 104 mmol/L (98-108); Estimated Glomerular Filt Rate 6; Glucose 59 mg/dL (70-99); Potassium 3.8 mmol/L (3.5-5.1); Sodium 141 mmol/L (136-145)
[2021-06-02 12:22] LABS: Blood Urea Nitrogen > 150 mg/dL (7-18)
[2021-06-02 12:23] LABS: Osmolality Calculated 339 mOsm/kg (285-295)
== END 2021-06-02 11:26 | disposition home or self-care (01) ==
LOC: CHSLAB 11:30
PROVIDERS: PCP Family Medicine
DX: N18.9 Chronic kidney disease, unspecified (principal)
CPT/HCPCS: 80048